=== PATIENT | female | born 1985 | race Caucasian/White ===

== ENCOUNTER 2017-04-07 21:48 | Inpatient (IN) | payer MEDICAID, OTHER ==
[2017-04-07 22:30] LABS: Basophils % (Auto) 0.6 % (0.0-1.8); Eosinophils % (Auto) 4.3 % (0.0-4.3); Hematocrit 42.4 % (30.3-42.9); Hemoglobin 14.2 gm/dl (10.1-14.3); Mean Corpuscular HGB Conc 34 % (30-34); Mean Corpuscular Hemoglobin 31 pg (28-32); Mean Corpuscular Volume 91 fl (79-97); Platelet Count 188 K/mm3 (140-440); Red Blood Count 4.66 M/mm3 (3.65-5.03); Red Cell Distribution Width 14.1 % (13.2-15.2); White Blood Count 6.5 K/mm3 (4.5-11.0)
[2017-04-07 22:48] LABS: Alanine Aminotransferase 296 units/L (7-56); Albumin 4.2 g/dL (3.9-5); Albumin/Globulin Ratio 1.4 %; Alkaline Phosphatase 443 units/L (35-129); Anion Gap 20 mmol/L; Blood Urea Nitrogen 6 mg/dL (7-17); Calcium 9.2 mg/dL (8.4-10.2); Carbon Dioxide 22 mmol/L (22-30); Chloride 100.4 mmol/L (98-107); Glucose 136 mg/dL (65-100); Lipase 35 units/L (13-60); Potassium 3.9 mmol/L (3.6-5.0); Sodium 138 mmol/L (137-145); Total Protein 7.3 g/dL (6.3-8.2)
[2017-04-07 23:13] LABS: Bacteria,Urine 3+ /HPF (Negative); Bilirubin,Urine NEG (Negative); Blood,Urine MOD (Negative); Ketones,Urine NEG (Negative); Leukocyte Esterase,Urine TR (Negative); Nitrite,Urine NEG (Negative); Protein,Urine <15 mg/dL mg/dL (Negative)
[2017-04-08] MEDS ORDERED: NACL 0.9% 1000 ML 1,000 ML ONE (09:39)
[2017-04-08] MEDS ORDERED: NACL 0.9% 1000 ML 1,000 ML IV ONE (09:43)
[2017-04-08] MEDS ORDERED: MORPHINE IV ONE ×2 (09:43→11:49)
[2017-04-08] MEDS ORDERED: ZOFRAN IV ONE (09:43)
--- NOTE | 2017-04-08 10:41 | Ultrasound Report ---
The limited abdominal ultrasound: Imaging of the liver, pancreas, and right kidney are all echogenically normal. The renal length is 10.1 cm. The gallbladder has numerous calculi with distal shadowing. The gallbladder wall is thickened measuring roughly 4.5 mm. No pericholecystic fluid identified. CBD is dilated with a diameter of 11 mm. There is some question of minimal intraductal dilatation. The transverse diameter of the proximal abdominal aorta is 1.3 cm. Impression: Cholelithiasis. No definite signs of cholecystitis however the patient apparently has a positive Grant's sign according to our technologist. Dilatation of the CBD and possible biliary ducts but no intraluminal calculus identified.
--- NOTE | 2017-04-08 11:07 | Admit Criteria Form ---
Admission Criteria Documentation: GALLBLADDER OR BILE DUCT INFLAMMATION OR STONE Clinical Indications for Admission to Inpatient Care ( Place 'X' for any and all applicable criteria): Admission is indicated for patients with ANY ONE of the following(1)(2)(3)(4)(5) : [ ]I. Acute cholecystitis as indicated by ALL of the following: [ ]a) Right upper quadrant pain, mass, or tenderness [ ]b) Systemic signs of inflammation indicated by ANY ONE of the following: [ ]i) Fever [ ]ii) C-reactive protein level greater than 10 mg/L (95 nmol/L) [ ]iii) White blood cell count greater than 10,000/mm3 (10 x109/L) or less than 4000/mm3 (4 x109/L) [X]II. Inpatient admission required rather than observation care (Also use Gallbladder or Bile Duct Inflammation or Stone: Observation Care as appropriate) because of ANY ONE of the following: [ ]a) Common bile duct obstruction diagnosed [ ]b) Vomiting that is severe or persistent [X]c) Severe pain requiring acute inpatient management [ ]d) Signs of intestinal obstruction or peritonitis [A] [ ]e) Severe electrolyte abnormalities requiring inpatient care [ ]f) Absent bowel sounds with complete ileus(8) [ ]g) Hemodynamic instability [ ]h) High fever or infection requiring inpatient admission as indicated by ANY ONE of the following (9): [ ]1) Appropriate outpatient or observation care antimicrobial Treatment. unavailable, not effective, or not feasible [ ]2) Temperature greater than 104.9 degrees F (40.5 degrees C) (oral) [ ]3) Temperature greater than 103.1 degrees F (39.5 degrees C) (oral) or less than 96.8 degrees F (36 degrees C) (rectal) that does not respond to all emergency treatment measures [ ]4) Documented bacteremia [ ]i) IV fluid to replace significant ongoing losses (greater than 3 L/m2 per day) [ ]j) Percutaneous or open drainage (eg, abscess, biliary tract) procedures [ ]k) Immediate inpatient surgery [ ]l) Other condition, treatment or monitoring requiring inpatient admission [ ]III. Acute cholangitis as indicated by ALL of the following(9)(10): [ ]a) Systemic signs of inflammation indicated by ANY ONE of the following: [ ]i) Fever [ ]ii) C-reactive protein level greater than 10 mg/L (95 nmol /L) [ ]iii) White blood cell count greater than 10,000/mm3 (10 x109/L) or less than 4000/mm3 (4 x109/L) []b) Evidence of common bile duct disease indicated by ANY ONE of the following: [ ]i) Total serum bilirubin level greater than or equal to 2 mg/dL (34 micromoles/L) [ ]ii) Liver function test (alkaline phosphatase (ALP), r- glutamyltransferase (GGT), aspartate aminotransferase (AST), or alanine aminotransferase (ALT)) greater than 1.5 times the upper limit of normal[B] []iii) Hepatobiliary imaging showing biliary dilatation or evidence of etiology (eg, stricture, stone, previously placed stent) Extended stay beyond goal length of stay may be needed for (1)(2)): [ ]a) Bacteremia or Hemodynamic instability [ ]b) Cholecystectomy [ ]c) Other surgical procedure(24) [ ]d) Percutaneous or endoscopic ultrasound-guided cholecystostomy The original [facility] content created by [facility] has been revised. The portions of the content which have been revised are identified through the use of italic text or in bold, and [facility] has neither reviewed nor approved the modified material. All other unmodified content is copyright [facility]. Please see references footnoted in the original [facility] edition 2016 Admission Criteria Met: Yes
[2017-04-08] MEDS ORDERED: LEVAQUIN 500MG/100ML 500 MG/100 ML BAG IV ONE (11:49)
--- NOTE | 2017-04-08 11:59 | Emergency Department Report ---
ED Abdominal Pain HPI - General Chief Complaint: Abdominal Pain Stated Complaint: R SIDE ABD/BACK PAIN Time Seen by Provider: 04/08/17 10:18 Source: patient, RN notes reviewed Mode of arrival: Ambulatory Limitations: No Limitations - History of Present Illness Initial Comments: 31-year-old female presents to the emergency department complaining of abdominal pain. Patient reports onset of right upper quadrant abdominal pain 4 days ago. Pain was described as sharp and radiated into her upper back. Patient states she vomited one time then. After vomiting, the pain subsided. Pain began again yesterday and has been progressively getting worse since onset. Pain has been constant and again described as sharp. She describes radiation of this pain into her upper back and somewhat into her right chest. She is currently denying nausea or vomiting. There has been no fever. There are no other complaints. MD Complaint: abdominal pain -: Gradual, days(s) (4) Location: RUQ Radiation: back, chest Migration to: no migration Severity: severe Severity scale (0 -10): 10 Quality: sharp Consistency: constant Improves With: vomiting Worsens With: eating Associated Symptoms: nausea, vomiting - Related Data Home Medications Medication Instructions Recorded Confirmed Last Taken No Known Home Medications [No 04/08/17 04/08/17 Unknown Reported Home Medications] Allergies Allergy/AdvReac Type Severity Reaction Status Date / Time No Known Allergies Allergy Verified 02/14/16 18:21 ED Review of Systems ROS: Stated complaint: R SIDE ABD/BACK PAIN Other details as noted in HPI Comment: All other systems reviewed and negative Gastrointestinal: abdominal pain, nausea, vomiting ED Past Medical Hx - Past Medical History Previous Medical History?: No Hx Hypertension: No Hx Congestive Heart Failure: No Hx Diabetes: No Hx Deep Vein Thrombosis: No Hx Renal Disease: No Hx Sickle Cell Disease: No Hx Seizures: No Hx Asthma: No Hx COPD: No Hx HIV: No - Surgical History Past Surgical History?: No - Family History Family history: no significant - Social History Smoking Status: Never Smoker Substance Use Type: None - Medications Home Medications: Home Medications Medication Instructions Recorded Confirmed Last Taken Type No Known Home Medications [No 04/08/17 04/08/17 Unknown History Reported Home Medications] ED Physical Exam - General Limitations: No Limitations General appearance: alert, in no apparent distress - Head Head exam: Present: atraumatic, normocephalic - Eye Eye exam: Present: normal appearance, PERRL, EOMI - ENT ENT exam: Present: normal exam, normal orophraynx, mucous membranes moist - Neck Neck exam: Present: normal inspection, full ROM. Absent: tenderness - Respiratory Respiratory exam: Present: normal lung sounds bilaterally. Absent: respiratory distress - Cardiovascular Cardiovascular Exam: Present: regular rate, normal rhythm, normal heart sounds - GI/Abdominal GI/Abdominal exam: Present: soft, tenderness (mild right upper quadrant tenderness to palpation), normal bowel sounds. Absent: distended, guarding, rebound - Extremities Exam Extremities exam: Present: normal inspection, full ROM. Absent: tenderness - Back Exam Back exam: Present: normal inspection, full ROM. Absent: tenderness - Neurological Exam Neurological exam: Present: alert, oriented X3. Absent: motor sensory deficit - Skin Skin exam: Present: warm, dry, intact ED Course Vital Signs 04/07/17 04/08/17 04/08/17 22:04 03:40 08:39 Temperature 98.9 F 98.5 F Pulse Rate 99 H 84 83 Respiratory 18 18 14 Rate Blood Pressure 153/103 142/107 O2 Sat by Pulse 100 99 100 Oximetry 04/08/17 04/08/17 04/08/17 08:41 08:51 09:00 Temperature Pulse Rate 78 87 80 Respiratory 17 15 19 Rate Blood Pressure 151/94 151/94 154/95 O2 Sat by Pulse 100 100 100 Oximetry 04/08/17 04/08/17 04/08/17 09:11 09:19 09:21 Temperature Pulse Rate 89 80 Respiratory 17 18 18 Rate Blood Pressure 154/95 154/95 O2 Sat by Pulse 100 99 100 Oximetry 04/08/17 09:58 Temperature Pulse Rate Respiratory 16 Rate Blood Pressure O2 Sat by Pulse Oximetry ED Medical Decision Making - Lab Data Result diagrams: 04/07/17 22:12 04/07/17 22:12 - Radiology Data Radiology results: report reviewed Abdominal ultrasound reveals cholelithiasis without evidence of cholecystitis. The common bile duct is dilated up to 11 mm. There is possible intrahepatic ductal dilatation as well. - Medical Decision Making Lab and imaging results reviewed and discussed with the patient. I have spoken with Dr. Mccoy, surgery. He is requesting IV Levaquin and MRCP be ordered. He will see the patient. Patient is to be admitted by the hospitalist. - Differential Diagnosis cholecystitis, cholelithiasis, hepatitis, pancreatitis Critical care attestation.: If time is entered above; I have spent that time in minutes in the direct care of this critically ill patient, excluding procedure time. ED Disposition Clinical Impression: Cholelithiasis Qualifiers: Cholelithiasis location: gallbladder Cholecystitis presence: without cholecystitis Biliary obstruction: with biliary obstruction Qualified Code(s): K80.21 - Calculus of gallbladder without cholecystitis with obstruction Disposition: OP ADMITTED IP TO THIS HOSP Is pt being admited?: Yes Condition: Stable Instructions: Abdominal Pain (ED) Referrals: PRIMARY CARE, [Primary Care Provider] - 3-5 Days Time of Disposition: 12:25
[2017-04-08] MEDS ORDERED: TYLENOL PO PRN (14:52)
[2017-04-08] MEDS ORDERED: MILK OF MAGNESIA PO PRN (14:52)
[2017-04-08] MEDS ORDERED: DULCOLAX PR PRN (14:52)
[2017-04-08] MEDS ORDERED: ZOFRAN IV PRN (14:52)
--- NOTE | 2017-04-08 15:11 | Progress Note ---
Assessment and Plan Full consult dictated 31 y/o female r/o cholecystitis/choledocolithiasis. r/o choledocolithiasis. RUQ pain. elevated T Tonio. dilated CBD on US awaiting MRCP keep npo pain meds IV Levaquin will f/u on MRCP results will need GI eval for ERCP if MR shows CBD stones Selected Entries 04/08/17 04/08/17 13:51 14:03 Temperature 98.1 F Pulse Rate 92 H Respiratory 15 Rate Blood Pressure 134/90 Laboratory Tests 04/07/17 04/07/17 22:12 22:12 WBC 6.5 Hgb 14.2 Hct 42.4 Sodium 138 Potassium 3.9 Chloride 100.4 BUN 6 L Creatinine 0.4 L Glucose 136 H Total Bilirubin 3.40 H AST 89 H ALT 296 H Alkaline Phosphatase 443 H Objective Vital Signs - 12hr 04/08/17 04/08/17 04/08/17 12:30 12:41 12:51 Temperature Pulse Rate 90 97 H 93 H Respiratory 23 23 16 Rate Blood Pressure 117/77 117/77 121/69 Blood Pressure [Right] O2 Sat by Pulse 100 99 100 Oximetry 04/08/17 04/08/17 04/08/17 13:00 13:11 13:21 Temperature Pulse Rate 91 H 91 H 90 Respiratory 16 18 25 H Rate Blood Pressure 125/87 125/87 128/90 Blood Pressure [Right] O2 Sat by Pulse 100 100 100 Oximetry 04/08/17 04/08/17 04/08/17 13:30 13:41 13:51 Temperature 98.1 F Pulse Rate 87 90 92 H Respiratory 18 16 18 Rate Blood Pressure 137/91 137/91 134/90 Blood Pressure 134/90 [Right] O2 Sat by Pulse 100 99 100 Oximetry 04/08/17 14:03 Temperature Pulse Rate Respiratory 15 Rate Blood Pressure Blood Pressure [Right] O2 Sat by Pulse 100 Oximetry - Labs 04/07/17 22:12 04/07/17 22:12
--- NOTE | 2017-04-08 16:01 | History and Physical Report ---
History of Present Illness Date of examination: 04/08/17 Date of admission: 04/08/2017 Chief complaint: Abdominal Pain History of present illness: Patient is 31 Yrs old female came in to the ED with C/O of abdominal pain. Patient reported she had sharp right upper quadrant pain that radiated to right upper back since Thursday. Patient mentioned that her pain started after eating greasy dinner. Also patient reported that she vomited right after she ate. Patient stated that she felt better after vomiting. Pain started back again on 04/06/2017 and she took Tylenol but did not help with the pain. pain worsen since Thursday and decided to come in to ED. Patient denies nausea and vomiting at present time. Past History Past Surgical History: Social history: , full code. denies: smoking, alcohol abuse Family history: no significant family history Medications and Allergies Allergies Allergy/AdvReac Type Severity Reaction Status Date / Time No Known Allergies Allergy Verified 02/14/16 18:21 Home Medications Medication Instructions Recorded Confirmed Last Taken Type No Known Home Medications [No 04/08/17 04/08/17 Unknown History Reported Home Medications] Active Meds: Active Medications Acetaminophen (Tylenol) 650 mg PO Q4H PRN PRN Reason: Pain MILD(1-3)/Fever >100.5/ECHAVARRIA Bisacodyl (Dulcolax) 10 mg IA QDAY PRN PRN Reason: Constipation unrelieved by [facility] Dextrose/Sodium Chloride (D5ns) 1,000 mls @ 75 mls/hr IV DIRECT [place] Levofloxacin/Dextrose (Levaquin 750mg/150ml) 750 mg in 150 mls @ 100 mls/hr IV Q24HR AREG[place] PRN Reason: Protocol Influenza Virus Vaccine Quadrival (Fluarix Quad [id number](36 Mos+)) 60 mcg IM .ONCE ONE Stop: 04/09/17 12:01 Magnesium Hydroxide (Milk Of Magnesia) 30 ml PO Q4H PRN PRN Reason: Constipation Morphine Sulfate (Morphine) 2 mg IV Q4H PRN PRN Reason: Pain, Moderate (4-6) Ondansetron HCl (Zofran) 4 mg IV Q8H PRN PRN Reason: N/V unrelieved by Reglan Review of Systems Constitutional: no weight loss, no weight gain, no fever, no chills, no sweats, no night sweats, no malaise Ears, nose, mouth and throat: deferred Breasts: deferred Cardiovascular: no chest pain, no palpitations, no syncope, no shortness of breath Respiratory: no cough, no dyspnea on exertion Gastrointestinal: abdominal pain, nausea, vomiting, no diarrhea, no constipation , no hematemesis, no melena Genitourinary Female: no dyspareunia, no pelvic pain, no flank pain Rectal: no incontinence, no bleeding Musculoskeletal: no neck stiffness, no leg numbness/tingling, no redness of joints Integumentary: deferred Neurological: no head injury, no syncope Psychiatric: no anxiety, no confusion Endocrine: no weight change Allergic/Immunologic: no urticaria Exam - Constitutional Vitals: Temp Pulse Resp BP Pulse Ox 98.1 F 92 H 15 134/90 100 04/08/17 13:51 04/08/17 13:51 04/08/17 14:03 04/08/17 13:51 04/08/17 14:03 General appearance: Present: no acute distress, well-nourished - EENT Eyes: Present: PERRL ENT: hearing intact, clear oral mucosa - Neck Neck: Present: supple, normal ROM - Respiratory Respiratory effort: normal Respiratory: bilateral: CTA - Cardiovascular Heart Sounds: Present: S1 & S2. Absent: rub, click - Extremities Extremities: pulses symmetrical, No edema Peripheral Pulses: within normal limits - Abdominal General gastrointestinal: Present: soft, tender (RUQ tenderness present, no guarding, no rigidity), non-distended, normal bowel sounds Localized gastrointestinal: tender: RUQ Female genitourinary: Present: normal - Integumentary Integumentary: Present: clear, warm, dry - Musculoskeletal Musculoskeletal: gait normal, strength equal bilaterally - Psychiatric Psychiatric: appropriate mood/affect, intact judgment & insight - Neurologic Neurologic: CNII-XII intact, moves all extremities Results - Labs CBC & Chem 7: 04/07/17 22:12 04/07/17 22:12 Labs: Laboratory Last Values WBC 6.5 K/mm3 (4.5-11.0) 04/07/17 22:12 RBC 4.66 M/mm3 (3.65-5.03) 04/07/17 22:12 Hgb 14.2 gm/dl (10.1-14.3) 04/07/17 22:12 Hct 42.4 % (30.3-42.9) 04/07/17 22:12 MCV 91 fl (79-97) 04/07/17 22:12 MCH 31 pg (28-32) 04/07/17 22:12 MCHC 34 % (30-34) 04/07/17 22:12 RDW 14.1 % (13.2-15.2) 04/07/17 22:12 Plt Count 188 K/mm3 (140-440) 04/07/17 22:12 Lymph % (Auto) 22.7 % (13.4-35.0) 04/07/17 22:12 Hinds % (Auto) 6.1 % (0.0-7.3) 04/07/17 22:12 Eos % (Auto) 4.3 % (0.0-4.3) 04/07/17 22:12 Baso % (Auto) 0.6 % (0.0-1.8) 04/07/17 22:12 Lymph # 1.5 K/mm3 (1.2-5.4) 04/07/17 22:12 Hinds # 0.4 K/mm3 (0.0-0.8) 04/07/17 22:12 Eos # 0.3 K/mm3 (0.0-0.4) 04/07/17 22:12 Baso # 0.0 K/mm3 (0.0-0.1) 04/07/17 22:12 Seg Neutrophils % 66.3 % (40.0-70.0) 04/07/17 22:12 Seg Neutrophils # 4.3 K/mm3 (1.8-7.7) 04/07/17 22:12 Sodium 138 mmol/L (137-145) 04/07/17 22:12 Potassium 3.9 mmol/L (3.6-5.0) 04/07/17 22:12 Chloride 100.4 mmol/L (98-107) 04/07/17 22:12 Carbon Dioxide 22 mmol/L (22-30) 04/07/17 22:12 Anion Gap 20 mmol/L 04/07/17 22:12 BUN 6 mg/dL (7-17) L 04/07/17 22:12 Creatinine 0.4 mg/dL (0.7-1.2) L 04/07/17 22:12 Estimated GFR > 60 ml/min 04/07/17 22:12 BUN/Creatinine Ratio 15.00 % 04/07/17 22:12 Glucose 136 mg/dL (65-100) H 04/07/17 22:12 Calcium 9.2 mg/dL (8.4-10.2) 04/07/17 22:12 Total Bilirubin 3.40 mg/dL (0.1-1.2) H 04/07/17 22:12 AST 89 units/L (5-40) H 04/07/17 22:12 ALT 296 units/L (7-56) H 04/07/17 22:12 Alkaline Phosphatase 443 units/L (35-129) H 04/07/17 22:12 Total Protein 7.3 g/dL (6.3-8.2) 04/07/17 22:12 Albumin 4.2 g/dL (3.9-5) 04/07/17 22:12 Albumin/Globulin Ratio 1.4 % 04/07/17 22:12 Lipase 35 units/L (13-60) 04/07/17 22:12 Urine Color Cathie (Yellow) 04/07/17 Unknown Urine Turbidity Clear (Clear) 04/07/17 Unknown Urine pH 7.0 (5.0-7.0) 04/07/17 Unknown Ur Specific [place] 1.010 (1.003-1.030) 04/07/17 Unknown Urine Protein <15 mg/dl mg/dL (Negative) 04/07/17 Unknown Urine Glucose (UA) Neg mg/dL (Negative) 04/07/17 Unknown Urine Ketones Neg mg/dL (Negative) 04/07/17 Unknown Urine Blood Mod (Negative) 04/07/17 Unknown Urine Nitrite Neg (Negative) 04/07/17 Unknown Urine Bilirubin Neg (Negative) 04/07/17 Unknown Urine Urobilinogen 4.0 mg/dL (<2.0) 04/07/17 Unknown Ur Leukocyte Esterase Tr (Negative) 04/07/17 Unknown Urine WBC (Auto) 2.0 /HPF (0.0-6.0) 04/07/17 Unknown Urine RBC (Auto) 3.0 /HPF (0.0-6.0) 04/07/17 Unknown U Epithel Cells (Auto) 2.0 /HPF (0-13.0) 04/07/17 Unknown Urine Bacteria (Auto) 3+ /HPF (Negative) 04/07/17 Unknown Urine HCG, Qual Negative (Negative) 04/07/17 Unknown Short CBC 04/07/17 Range/Units 22:12 WBC 6.5 (4.5-11.0) K/mm3 Hgb 14.2 (10.1-14.3) gm/dl Hct 42.4 (30.3-42.9) % Plt Count 188 (140-440) K/mm3 BMP 04/07/17 22:12 Sodium 138 Potassium 3.9 Chloride 100.4 Carbon Dioxide 22 BUN 6 L Creatinine 0.4 L Glucose 136 H Calcium 9.2 Liver Function 04/07/17 Range/Units 22:12 Total Bilirubin 3.40 H (0.1-1.2) mg/dL AST 89 H (5-40) units/L ALT 296 H (7-56) units/L Alkaline Phosphatase 443 H (35-129) units/L Albumin 4.2 (3.9-5) g/dL Urine 04/07/17 Range/Units Unknown Urine Color Cathie (Yellow) Urine pH 7.0 (5.0-7.0) Ur Specific [place] 1.010 (1.003-1.030) Urine Protein <15 mg/dl (Negative) mg/dL Urine Glucose (UA) Neg (Negative) mg/dL - Imaging and Cardiology US - abdomen: report reviewed (Cholelithiasis ) MRI - abdomen: report reviewed (MRCP Cholelithiasis and Choledocholithasis with at least 6 stones in the CBD, 2 Obstructing Calculus in the distal CBD, 3 no sign of pancreatitis ) Assessment and Plan Assessment and plan: Full Code Advance Directives: Yes VTE prophylaxis?: Chemical Plan of care discussed with patient/family: Yes - Patient Problems (1) Cholelithiasis Current Visit: Yes Status: Acute Qualifiers: Cholelithiasis location: gallbladder Cholecystitis presence: without cholecystitis Cholangitis presence: C Cholecystitis acuity: C Cholangitis acuity: C Biliary obstruction: with biliary obstruction Qualified Code(s): K80.21 - Calculus of gallbladder without cholecystitis with obstruction Plan to address problem: MRCP positive for obstructing Calculus in the distal CBD at least 6 stones in the CBD. Surgery Dr. Mccoy also GI consulted for possible ERCP. Pain control in mean time IV fluid and keep patient NPO (2) HTN (hypertension) Current Visit: Yes Status: Acute Qualifiers: Hypertension type: H Plan to address problem: Secondary to pain will add antihypertensive if its needed. (3) DVT prophylaxis Current Visit: Yes Status: Acute Plan to address problem: Lovenox 40mg SQ QD
--- NOTE | 2017-04-08 16:13 | Magnetic Resonance Report ---
MRI ABDOMEN WITH MRCP: 04/08/17 11:49:00 CLINICAL: Cholelithiasis and CBD dilatation. COMPARISON:Same day ultrasound of the right upper quadrant. TECHNIQUE: Axial T1 in phase and opposed phase, coronal and axial T2 and axial T2 fat sat sequences plus thin and thick slab MRCP sequences on a 1.5 Sheyla magnet. FINDINGS: Normal liver size, contour and signal. No liver mass. Numerous calculi are identified in the gallbladder. Normal gallbladder wall thickness and no pericholecystic fluid. Marked dilatation of intrahepatic and extrahepatic mild ducts and multiple common duct stones. The common hepatic duct measures 13 mm diameter and there are at least six common bile duct stones. The CBD is dilated to the ampulla and there is an obstructing stone at the end of the duct. The pancreas and pancreatic duct are normal. Normal stomach, duodenum and spleen. The adrenal glands and kidneys are normal. Normal aorta and inferior vena cava. No ascites. IMPRESSION: 1. Cholelithiasis and choledocholithiasis with at least 6 stones in the CBD. 2. Obstructing calculus in the distal CBD. 3. No signs of pancreatitis.
[2017-04-08] MEDS: MORPHINE IV PRN ×2 (17:09→20:56)
[2017-04-08] MEDS: LEVAQUIN 750MG/150ML 750 MG/150 ML BAG IV SCH (17:10)
[2017-04-08] MEDS: D5NS 1,000 ML IV SCH (17:11)
[2017-04-09] MEDS: MORPHINE IV PRN ×2 (01:53→22:16)
[2017-04-09 05:45] LABS: Basophils % (Auto) 0.2 % (0.0-1.8); Eosinophils % (Auto) 0.7 % (0.0-4.3); Hematocrit 43.1 % (30.3-42.9); Hemoglobin 14.5 gm/dl (10.1-14.3); Mean Corpuscular HGB Conc 34 % (30-34); Mean Corpuscular Hemoglobin 31 pg (28-32); Mean Corpuscular Volume 91 fl (79-97); Platelet Count 176 K/mm3 (140-440); Red Blood Count 4.74 M/mm3 (3.65-5.03); Red Cell Distribution Width 13.8 % (13.2-15.2); White Blood Count 9.4 K/mm3 (4.5-11.0)
[2017-04-09 06:01] LABS: Anion Gap 19 mmol/L; Blood Urea Nitrogen 3 mg/dL (7-17); Calcium 8.7 mg/dL (8.4-10.2); Carbon Dioxide 23 mmol/L (22-30); Chloride 99.4 mmol/L (98-107); Glucose 125 mg/dL (65-100); Potassium 3.5 mmol/L (3.6-5.0); Sodium 138 mmol/L (137-145)
--- NOTE | 2017-04-09 06:06 | Consultation ---
REASON FOR CONSULTATION: 1. Rule out biliary colic/cholecystitis. 2. Rule out choledocholithiasis. HISTORY OF PRESENT ILLNESS: The patient is a pleasant 31-year-old female who presented to Emergency Room with recent onset of right upper quadrant abdominal pain accompanied by nausea and vomiting. PAST MEDICAL HISTORY: Negative. PAST SURGICAL HISTORY: Status post . ALLERGIES: No known allergies. MEDICATIONS: No medications. FAMILY HISTORY: Negative. SOCIAL HISTORY: Occasional ethanol intake. Denies any smoking. REVIEW OF SYSTEMS: Noncontributory. PHYSICAL EXAMINATION: GENERAL: At this time reveals the patient to be awake, alert, cooperative, in mild discomfort, but no acute distress. VITAL SIGNS: Showed to be afebrile with a temperature of 98.1, blood pressure of 134/90, pulse of 92, respirations of 18. HEENT: Pupils are equal and reactive to light and accommodation. Sclerae is nonicteric at this time. ABDOMEN: Examination of the abdomen reveals it to be soft. There is however, localized epigastric and right upper quadrant tenderness. No guarding or rebound is noted. Bowel sounds are hypoactive. LABORATORY DATA: Lab work at present includes CBC which shows a white count of 6.5, H and H is and 42.4. Electrolytes are essentially within normal limits. LFTs are elevated including a total bilirubin of 3.4, AST is 89, ALT is 296, alkaline phosphatase is 443, all of them elevated. Lipase is 35. Amylase is not noted on chart. A gallbladder ultrasound has been performed, which shows cholelithiasis, but no definite signs of cholecystitis. However, the common bile duct is described as dilated approximately 1.1 cm, but no evidence of common duct stones are noted on ultrasound. IMPRESSION: 1. At this time is that of a 31-year-old healthy female, rule out cholecystitis. 2. Rule out choledocholithiasis with evidence of dilated common duct and elevated total bilirubin. RECOMMENDATIONS: Would keep the patient n.p.o. at this time. Start IV Levaquin as well as pain medication as needed. We will order MRCP. The patient will need GI evaluation and an ERCP, if MRCP reveals any evidence of common bile duct stones. If not, we will monitor clinically and proceed with laparoscopic cholecystectomy in the next few days. We will follow closely with you. Thank you very much for consultation. JOB# [id number] ASHKAN/NTS
[2017-04-09] MEDS: D5NS 1,000 ML IV SCH (07:06)
--- NOTE | 2017-04-09 09:19 | Progress Note ---
Assessment and Plan Assessment and plan: Cholelithiasis. MRCP positive for obstructing Calculus in the distal CBD at least 6 stones in the CBD. Surgery Dr. Mccoy also GI consulted for possible ERCP today. Continue Pain control Continue IV fluid and keep patient NPO Hypertension. Etiology likely secondary to pain. Consider adding antihypertensive medications as needed. DVT prophylaxis. Continue Lovenox daily. History Interval history: Patient still complains of right upper and lower quadrant abdominal pain. Hospitalist Physical - Constitutional Vitals: Temp Pulse Resp BP Pulse Ox 98.8 F 90 18 127/83 100 04/09/17 00:15 04/09/17 00:15 04/09/17 00:15 04/09/17 00:15 04/08/17 14:10 General appearance: Present: no acute distress, well-nourished - EENT Eyes: Present: PERRL, EOM intact ENT: hearing intact, clear oral mucosa, dentition normal - Neck Neck: Present: supple, normal ROM - Respiratory Respiratory effort: normal Respiratory: bilateral: CTA - Cardiovascular Rhythm: regular Heart Sounds: Present: S1 & S2. Absent: gallop, rub - Extremities Extremities: no ischemia, No edema, Full ROM - Abdominal General gastrointestinal: soft, tender, non-distended, normal bowel sounds Localized gastrointestinal: tender: RUQ, RLQ - Integumentary Integumentary: Present: clear, warm, dry - Neurologic Neurologic: CNII-XII intact, moves all extremities Results - Labs CBC & Chem 7: 04/09/17 05:13 04/09/17 05:13 Labs: Laboratory Last Values WBC 9.4 K/mm3 (4.5-11.0) 04/09/17 05:13 RBC 4.74 M/mm3 (3.65-5.03) 04/09/17 05:13 Hgb 14.5 gm/dl (10.1-14.3) H 04/09/17 05:13 Hct 43.1 % (30.3-42.9) H 04/09/17 05:13 MCV 91 fl (79-97) 04/09/17 05:13 MCH 31 pg (28-32) 04/09/17 05:13 MCHC 34 % (30-34) 04/09/17 05:13 RDW 13.8 % (13.2-15.2) 04/09/17 05:13 Plt Count 176 K/mm3 (140-440) 04/09/17 05:13 Lymph % (Auto) 16.1 % (13.4-35.0) 04/09/17 05:13 [place] % (Auto) 7.1 % (0.0-7.3) 04/09/17 05:13 Eos % (Auto) 0.7 % (0.0-4.3) 04/09/17 05:13 Baso % (Auto) 0.2 % (0.0-1.8) 04/09/17 05:13 Lymph # 1.5 K/mm3 (1.2-5.4) 04/09/17 05:13 [place] # 0.7 K/mm3 (0.0-0.8) 04/09/17 05:13 Eos # 0.1 K/mm3 (0.0-0.4) 04/09/17 05:13 Baso # 0.0 K/mm3 (0.0-0.1) 04/09/17 05:13 Seg Neutrophils % 75.9 % (40.0-70.0) H 04/09/17 05:13 Seg Neutrophils # 7.1 K/mm3 (1.8-7.7) 04/09/17 05:13 Sodium 138 mmol/L (137-145) 04/09/17 05:13 Potassium 3.5 mmol/L (3.6-5.0) L 04/09/17 05:13 Chloride 99.4 mmol/L (98-107) 04/09/17 05:13 Carbon Dioxide 23 mmol/L (22-30) 04/09/17 05:13 Anion Gap 19 mmol/L 04/09/17 05:13 BUN 3 mg/dL (7-17) L 04/09/17 05:13 Creatinine < 0.2 mg/dL (0.7-1.2) L D 04/09/17 05:13 Estimated GFR > 60 ml/min 04/09/17 05:13 BUN/Creatinine Ratio 15.00 % 04/09/17 05:13 Glucose 125 mg/dL (65-100) H 04/09/17 05:13 Calcium 8.7 mg/dL (8.4-10.2) 04/09/17 05:13 Total Bilirubin 3.40 mg/dL (0.1-1.2) H 04/07/17 22:12 AST 89 units/L (5-40) H 04/07/17 22:12 ALT 296 units/L (7-56) H 04/07/17 22:12 Alkaline Phosphatase 443 units/L (35-129) H 04/07/17 22:12 Total Protein 7.3 g/dL (6.3-8.2) 04/07/17 22:12 Albumin 4.2 g/dL (3.9-5) 04/07/17 22:12 Albumin/Globulin Ratio 1.4 % 04/07/17 22:12 Lipase 35 units/L (13-60) 04/07/17 22:12 Urine Color Cathie (Yellow) 04/07/17 Unknown Urine Turbidity Clear (Clear) 04/07/17 Unknown Urine pH 7.0 (5.0-7.0) 04/07/17 Unknown Ur Specific [place] 1.010 (1.003-1.030) 04/07/17 Unknown Urine Protein <15 mg/dl mg/dL (Negative) 04/07/17 Unknown Urine Glucose (UA) Neg mg/dL (Negative) 04/07/17 Unknown Urine Ketones Neg mg/dL (Negative) 04/07/17 Unknown Urine Blood Mod (Negative) 04/07/17 Unknown Urine Nitrite Neg (Negative) 04/07/17 Unknown Urine Bilirubin Neg (Negative) 04/07/17 Unknown Urine Urobilinogen 4.0 mg/dL (<2.0) 04/07/17 Unknown Ur Leukocyte Esterase Tr (Negative) 04/07/17 Unknown Urine WBC (Auto) 2.0 /HPF (0.0-6.0) 04/07/17 Unknown Urine RBC (Auto) 3.0 /HPF (0.0-6.0) 04/07/17 Unknown U Epithel Cells (Auto) 2.0 /HPF (0-13.0) 04/07/17 Unknown Urine Bacteria (Auto) 3+ /HPF (Negative) 04/07/17 Unknown Urine HCG, Qual Negative (Negative) 04/07/17 Unknown
--- NOTE | 2017-04-09 11:13 | Progress Note ---
Assessment and Plan Pt feeling well. Abd - decreased tenderness MRCP - + CBD stones. imp - cholelithiasis, choledocolithiasis with obst GI eval for ERCP Laboratory Tests 04/09/17 04/09/17 05:13 05:13 WBC 9.4 Hgb 14.5 H Hct 43.1 H Sodium 138 Potassium 3.5 L Chloride 99.4 BUN 3 L Creatinine < 0.2 L D Glucose 125 H Objective Vital Signs - 12hr 04/09/17 00:15 Temperature 98.8 F Pulse Rate [ 90 Left] Respiratory 18 Rate Blood Pressure 127/83 [Left Arm] - Labs 04/09/17 05:13 04/09/17 05:13 Diabetes panel 04/09/17 Range/Units 05:13 Sodium 138 (137-145) mmol/L Potassium 3.5 L (3.6-5.0) mmol/L Chloride 99.4 (98-107) mmol/L Carbon Dioxide 23 (22-30) mmol/L BUN 3 L (7-17) mg/dL Creatinine < 0.2 L D (0.7-1.2) mg/dL Glucose 125 H (65-100) mg/dL Calcium 8.7 (8.4-10.2) mg/dL Calcium panel 04/09/17 Range/Units 05:13 Calcium 8.7 (8.4-10.2) mg/dL Pituitary panel 04/09/17 Range/Units 05:13 Sodium 138 (137-145) mmol/L Potassium 3.5 L (3.6-5.0) mmol/L Chloride 99.4 (98-107) mmol/L Carbon Dioxide 23 (22-30) mmol/L BUN 3 L (7-17) mg/dL Creatinine < 0.2 L D (0.7-1.2) mg/dL Glucose 125 H (65-100) mg/dL Calcium 8.7 (8.4-10.2) mg/dL Adrenal panel 04/09/17 Range/Units 05:13 Sodium 138 (137-145) mmol/L Potassium 3.5 L (3.6-5.0) mmol/L Chloride 99.4 (98-107) mmol/L Carbon Dioxide 23 (22-30) mmol/L BUN 3 L (7-17) mg/dL Creatinine < 0.2 L D (0.7-1.2) mg/dL Glucose 125 H (65-100) mg/dL Calcium 8.7 (8.4-10.2) mg/dL
[2017-04-09] MEDS: LEVAQUIN 750MG/150ML 750 MG/150 ML BAG IV SCH (11:19)
[2017-04-09] MEDS ORDERED: FLUARIX QUAD 2016-2017(36 MOS+) IM ONE (12:00)
[2017-04-09 12:28] LABS: INR 0.96 (0.87-1.13); Partial Thromboplastin Time 28.1 Sec. (24.2-36.6)
[2017-04-09] MEDS ORDERED: BREVIBLOC IV ONE (16:00)
[2017-04-09] MEDS ORDERED: ZOFRAN ONE (16:00)
[2017-04-09] MEDS ORDERED: XYLOCAINE MPF 2% ONE (16:00)
[2017-04-09] MEDS ORDERED: NACL 0.9% 100 ML ONE (16:16)
[2017-04-09] MEDS ORDERED: WATER FOR IRRIG STERILE IR ONE (16:16)
[2017-04-09] MEDS ORDERED: NACL 0.9% 1000 ML 1,000 ML ONE (17:16)
--- NOTE | 2017-04-09 17:21 | Anesthesia Day of Surgery ---
Anesthesia Day of Surgery - Day of Surgery Patient Examined: Yes Patient H&P Reviewed: Yes Patient is NPO: Yes
--- NOTE | 2017-04-09 17:23 | Anesthesia Consultation ---
Anesthesia Consult and Med Hx - Airway Anesthetic Teeth Evaluation: Good, Caps (lower) ROM Head & Neck: Adequate Mental/Hyoid Distance: Adequate Mallampati Class: Class I Intubation Access Assessment: Probably Good - Pulmonary Exam CTA: Yes - Cardiac Exam Cardiac Exam: RRR - Pre-Operative Health Status ASA Pre-Surgery Classification: ASA1 Proposed Anesthetic Plan: General, MAC - Pulmonary Hx Asthma: No Hx Respiratory Symptoms: Yes (recent cold with mild cough, clear BS) COPD: No Hx Pneumonia: No - Cardiovascular System Hx Hypertension: No - Central Nervous System Hx Seizures: No Hx Psychiatric Problems: No - Endocrine Hx Renal Disease: No Hx End Stage Renal Disease: No Hx Hypothyroidism: No Hx Hyperthyroidism: No - Hematic Hx Anemia: No Hx Sickle Cell Disease: No - Other Systems Hx Alcohol Use: No - Additional Comments Anesthesia Medical History Comments: NPO after MN. No prior general anesthetics. No family hx of anesthesia problems.
--- NOTE | 2017-04-09 17:28 | Gastroenterology Consultation ---
History of Present Illness - Reason for Consult Consult date: 04/09/17 Choledocholithiasis Requesting physician: ETHEL RODRÍGUEZ - History of Present Illness The patient is a 31 yo female admitted with RUQ, N, and vomiting. She was noted to have elevated LFTs on admission, and an US was done: she had gallstones but also a dilated CBD. She then had an MRCP, and multiple large stones were seen. She has had no F/C since admit, and actually has minimal pain at present. She denies CP or SOB, and has no hx of cardiopulmonary disease. Past History Past Medical History: other (Gallstones) Past Surgical History: Social history: , full code. denies: smoking, alcohol abuse Family history: no significant family history Medications and Allergies Allergies Allergy/AdvReac Type Severity Reaction Status Date / Time No Known Allergies Allergy Verified 02/14/16 18:21 Home Medications Medication Instructions Recorded Confirmed Last Taken Type No Known Home Medications [No 04/08/17 04/08/17 Unknown History Reported Home Medications] Active Meds: Active Medications Acetaminophen (Tylenol) 650 mg PO Q4H PRN PRN Reason: Pain MILD(1-3)/Fever >100.5/ECHAVARRIA Bisacodyl (Dulcolax) 10 mg ID QDAY PRN PRN Reason: Constipation unrelieved by MOM Dextrose/Sodium Chloride (D5ns) 1,000 mls @ 75 mls/hr IV DIRECT [place] Last Admin: 04/09/17 07:06 Dose: 75 mls/hr Levofloxacin/Dextrose (Levaquin 750mg/150ml) 750 mg in 150 mls @ 100 mls/hr IV Q24HR [place] PRN Reason: Protocol Last Admin: 04/09/17 11:19 Dose: 100 mls/hr Magnesium Hydroxide (Milk Of Magnesia) 30 ml PO Q4H PRN PRN Reason: Constipation Morphine Sulfate (Morphine) 2 mg IV Q4H PRN PRN Reason: Pain, Moderate (4-6) Last Admin: 04/09/17 01:53 Dose: 2 mg Ondansetron HCl (Zofran) 4 mg IV Q8H PRN PRN Reason: N/V unrelieved by Reglan Review of Systems - Review of Systems All systems: negative (as noted in the HPI.) Exam - Constitutional Vital Signs: Temp Pulse Resp BP Pulse Ox 98.3 F 97 H 20 127/85 100 04/09/17 14:20 04/09/17 14:20 04/09/17 14:20 04/09/17 14:20 04/08/17 14:10 General appearance: no acute distress - EENT Eyes: PERRL, EOM intact, scleral icterus ENT: hearing intact, clear oral mucosa, no thrush - Neck Neck: supple, normal ROM - Respiratory Respiratory effort: normal Respiratory: bilateral: CTA - Cardiovascular Rhythm: regular Heart Sounds: Present: S1 & S2 Extremities: no ischemia, No edema - Gastrointestinal General gastrointestinal: Present: soft, tender (RUQ, but mild), non-distended - Integumentary Integumentary: Present: clear, warm, dry, rash ((Birthmark on L face)) - Neurologic Neurological: alert and oriented x3 - Labs CBC & Chem 7: 04/09/17 05:13 04/09/17 05:13 Lab Results: Laboratory Results - last 24 hr 04/09/17 04/09/17 04/09/17 05:13 05:13 12:06 WBC 9.4 RBC 4.74 Hgb 14.5 H Hct 43.1 H MCV 91 MCH 31 MCHC 34 RDW 13.8 Plt Count 176 Lymph % (Auto) 16.1 [place] % (Auto) 7.1 Eos % (Auto) 0.7 Baso % (Auto) 0.2 Lymph # 1.5 [place] # 0.7 Eos # 0.1 Baso # 0.0 Seg Neutrophils % 75.9 H Seg Neutrophils # 7.1 PT 12.7 INR 0.96 APTT 28.1 Sodium 138 Potassium 3.5 L Chloride 99.4 Carbon Dioxide 23 Anion Gap 19 BUN 3 L Creatinine < 0.2 L D Estimated GFR > 60 BUN/Creatinine Ratio 15.00 Glucose 125 H Calcium 8.7 Assessment and Plan - Patient Problems (1) Chronic cholecystitis due to cholelithiasis with choledocholithiasis Current Visit: Yes Status: Acute Plan to address problem: - Will plan ERCP today to remove stones. - Continue IV hydration and antibiotics.
[2017-04-09] MEDS ORDERED: VERSED IV ONE (17:29)
[2017-04-09] MEDS ORDERED: DIPRIVAN 10 MG/ML IV ONE ×4 (17:29→17:30)
[2017-04-09] MEDS ORDERED: KETALAR ONE (17:32)
[2017-04-09] MEDS ORDERED: NACL P/F VIAL (10 ML) 10 ML ONE (17:33)
--- NOTE | 2017-04-09 18:28 | Post Operative Note ---
Pre-op diagnosis: Choledocholithiasis Post-op diagnosis: same Findings: 1. Bulging ampulla 2. PD not injected or cannulated 3. No filling of GB 4. CBD dilated to 10mm - Multiple filling defects - Several large stones removed with 9mm balloon Procedure: ERCP with sphincterotomy and balloon sweeping of the CBD Anesthesia: MAC Surgeon: MIREYA MONROY Estimated blood loss: minimal Pathology: none Specimen disposition: other (N/A) Condition: stable Disposition: floor (Recs: 1. Check AM LFTs; if normal, may d/c abx in 48 hours. 2. Clear liquids tonight; NPO after MN. 3. OK to proceed to CCY tomorrow if doing well.)
--- NOTE | 2017-04-09 20:28 | Operative Report ---
PROCEDURE PERFORMED: Endoscopic retrograde cholangiopancreatography with biliary sphincterotomy and balloon sweeping of the common bile duct. PREOPERATIVE DIAGNOSIS: Choledocholithiasis. POSTOPERATIVE DIAGNOSIS: Choledocholithiasis. ENDOSCOPIST: Luis Barahona MD INSTRUMENT: [employer] [place] video endoscope. MEDICATIONS: MAC anesthesia by [facility]. COMPLICATIONS: No apparent complications. ESTIMATED BLOOD LOSS: Minimal. SPECIMENS: None. IMPLANTS: None. CONDITION AT COMPLETION: Stable. ASSISTANTS: None. TECHNIQUE: The patient was informed of the risks and benefits of the procedure. She signed the informed consent to proceed. She was placed in the prone position. The above sedative medications were given. Her vital signs remained stable throughout the procedure. The instrument was advanced from the mouth to the second portion of the duodenum under direct visualization. At that point, the bowel was insufflated. The ampulla was noted to be quite bulging and edematous, probably from a passed gallstone. The pancreatic duct was not cannulated during the procedure. The biliary ductal system was cannulated using a Hydratome and a 0.035 guidewire. The cholangiogram showed a dilated bile duct with numerous filling defects. A large sphincterotomy was performed and a 9 mm balloon was swept through 4 times with removal of several large gallstones. The procedure was then terminated. FINDINGS: 1. Bulging ampulla. 2. Pancreatic duct not injected or cannulated during this procedure. 3. No filling noted of the gallbladder. 4. Common bile duct was cannulated using the Hydratome and a 0.035 guidewire and was dilated to 10 mm. A. Right multiple filling defects were seen. B. A large sphincterotomy was performed. C. 9 mm balloon was swept through 4 times with removal of several, at least 4, mixed pigment stones and clearance of the duct afterwards. RECOMMENDATIONS: 1. Check morning liver enzymes and if they have normalized, may discontinue the antibiotics in 48 hours. 2. Clear liquid diet tonight with nothing after midnight. 3. Okay to proceed to cholecystectomy tomorrow if doing well. 4. Avoid nonsteroidal anti-inflammatory drugs for 7 days given a sphincterotomy. JOB# [id number] E/NTS
[2017-04-09] MEDS: PROTONIX PO SCH (23:09)
[2017-04-10 08:29] LABS: Alanine Aminotransferase 165 units/L (7-56); Albumin 3.6 g/dL (3.9-5); Albumin/Globulin Ratio 1.6 %; Alkaline Phosphatase 367 units/L (35-129); Anion Gap 18 mmol/L; Blood Urea Nitrogen 6 mg/dL (7-17); Calcium 8.7 mg/dL (8.4-10.2); Carbon Dioxide 24 mmol/L (22-30); Glucose 98 mg/dL (65-100); Potassium 3.6 mmol/L (3.6-5.0); Sodium 142 mmol/L (137-145); Total Protein 5.9 g/dL (6.3-8.2)
[2017-04-10] MEDS: LEVAQUIN 750MG/150ML 750 MG/150 ML BAG IV SCH (10:32)
[2017-04-10] MEDS: PROTONIX PO SCH (10:33)
--- NOTE | 2017-04-10 10:34 | Progress Note ---
Assessment and Plan Assessment and plan: Cholelithiasis. Patient underwent ERCP with sphincterotomy and balloon sweeping of the CBD. Continue to follow LFTs and discontinue antibiotics in the next 24 hours. Patient for cholecystectomy per surgery. Avoid NSAIDs for 7 days given size of sphincterotomy. Hypertension. Etiology likely secondary to pain. Consider adding antihypertensive medications as needed. DVT prophylaxis. Continue Lovenox daily. History Interval history: Patient still complains of right upper and lower quadrant abdominal pain. Hospitalist Physical - Constitutional Vitals: Temp Pulse Resp BP Pulse Ox 97.9 F 78 18 114/78 99 04/10/17 08:00 04/10/17 08:00 04/10/17 08:00 04/10/17 08:00 04/10/17 08:00 General appearance: Present: no acute distress, well-nourished - EENT Eyes: Present: PERRL, EOM intact ENT: hearing intact, clear oral mucosa, dentition normal - Neck Neck: Present: supple, normal ROM - Respiratory Respiratory effort: normal Respiratory: bilateral: CTA - Cardiovascular Rhythm: regular Heart Sounds: Present: S1 & S2. Absent: gallop, rub - Extremities Extremities: no ischemia, No edema, Full ROM - Abdominal General gastrointestinal: soft, non-tender, non-distended, normal bowel sounds - Integumentary Integumentary: Present: clear, warm, dry - Neurologic Neurologic: CNII-XII intact, moves all extremities Results - Labs CBC & Chem 7: 04/09/17 05:13 04/10/17 07:13 Labs: Laboratory Last Values WBC 9.4 K/mm3 (4.5-11.0) 04/09/17 05:13 RBC 4.74 M/mm3 (3.65-5.03) 04/09/17 05:13 Hgb 14.5 gm/dl (10.1-14.3) H 04/09/17 05:13 Hct 43.1 % (30.3-42.9) H 04/09/17 05:13 MCV 91 fl (79-97) 04/09/17 05:13 MCH 31 pg (28-32) 04/09/17 05:13 MCHC 34 % (30-34) 04/09/17 05:13 RDW 13.8 % (13.2-15.2) 04/09/17 05:13 Plt Count 176 K/mm3 (140-440) 04/09/17 05:13 Lymph % (Auto) 16.1 % (13.4-35.0) 04/09/17 05:13 [place] % (Auto) 7.1 % (0.0-7.3) 04/09/17 05:13 Eos % (Auto) 0.7 % (0.0-4.3) 04/09/17 05:13 Baso % (Auto) 0.2 % (0.0-1.8) 04/09/17 05:13 Lymph # 1.5 K/mm3 (1.2-5.4) 04/09/17 05:13 [place] # 0.7 K/mm3 (0.0-0.8) 04/09/17 05:13 Eos # 0.1 K/mm3 (0.0-0.4) 04/09/17 05:13 Baso # 0.0 K/mm3 (0.0-0.1) 04/09/17 05:13 Seg Neutrophils % 75.9 % (40.0-70.0) H 04/09/17 05:13 Seg Neutrophils # 7.1 K/mm3 (1.8-7.7) 04/09/17 05:13 PT 12.7 Sec. (12.2-14.9) 04/09/17 12:06 INR 0.96 (0.87-1.13) 04/09/17 12:06 APTT 28.1 Sec. (24.2-36.6) 04/09/17 12:06 Sodium 142 mmol/L (137-145) 04/10/17 07:13 Potassium 3.6 mmol/L (3.6-5.0) 04/10/17 07:13 Chloride 104.0 mmol/L (98-107) 04/10/17 07:13 Carbon Dioxide 24 mmol/L (22-30) 04/10/17 07:13 Anion Gap 18 mmol/L 04/10/17 07:13 BUN 6 mg/dL (7-17) L 04/10/17 07:13 Creatinine 0.3 mg/dL (0.7-1.2) L D 04/10/17 07:13 Estimated GFR > 60 ml/min 04/10/17 07:13 BUN/Creatinine Ratio 20.00 % 04/10/17 07:13 Glucose 98 mg/dL (65-100) 04/10/17 07:13 Calcium 8.7 mg/dL (8.4-10.2) 04/10/17 07:13 Total Bilirubin 3.70 mg/dL (0.1-1.2) H 04/10/17 07:13 AST 66 units/L (5-40) H 04/10/17 07:13 ALT 165 units/L (7-56) H 04/10/17 07:13 Alkaline Phosphatase 367 units/L (35-129) H 04/10/17 07:13 Total Protein 5.9 g/dL (6.3-8.2) L 04/10/17 07:13 Albumin 3.6 g/dL (3.9-5) L 04/10/17 07:13 Albumin/Globulin Ratio 1.6 % 04/10/17 07:13 Lipase 35 units/L (13-60) 04/07/17 22:12 Urine Color Cathie (Yellow) 04/07/17 Unknown Urine Turbidity Clear (Clear) 04/07/17 Unknown Urine pH 7.0 (5.0-7.0) 04/07/17 Unknown Ur Specific [place] 1.010 (1.003-1.030) 04/07/17 Unknown Urine Protein <15 mg/dl mg/dL (Negative) 04/07/17 Unknown Urine Glucose (UA) Neg mg/dL (Negative) 04/07/17 Unknown Urine Ketones Neg mg/dL (Negative) 04/07/17 Unknown Urine Blood Mod (Negative) 04/07/17 Unknown Urine Nitrite Neg (Negative) 04/07/17 Unknown Urine Bilirubin Neg (Negative) 04/07/17 Unknown Urine Urobilinogen 4.0 mg/dL (<2.0) 04/07/17 Unknown Ur Leukocyte Esterase Tr (Negative) 04/07/17 Unknown Urine WBC (Auto) 2.0 /HPF (0.0-6.0) 04/07/17 Unknown Urine RBC (Auto) 3.0 /HPF (0.0-6.0) 04/07/17 Unknown U Epithel Cells (Auto) 2.0 /HPF (0-13.0) 04/07/17 Unknown Urine Bacteria (Auto) 3+ /HPF (Negative) 04/07/17 Unknown Urine HCG, Qual Negative (Negative) 04/07/17 Unknown
--- NOTE | 2017-04-10 14:02 | Progress Note ---
Assessment and Plan Pt feeling better. s/p successful ERCP yest. sphincerotomy also performed Abd soft. non tender T Tonio higher today 3.7 surgically stable attempt cl liq diet monitor labs if stable and continues clinically improving, would rec wait 2-3 wks for semi- elective lap GB to allow biliary tree to decompress and reduce chances of leak or iatrogenic injuries Selected Entries 04/10/17 08:00 Temperature 97.9 F Pulse Rate [ 78 Left] Respiratory 18 Rate Blood Pressure 114/78 [Right Arm] Laboratory Tests 04/10/17 07:13 Total Bilirubin 3.70 H AST 66 H ALT 165 H Alkaline Phosphatase 367 H Objective Vital Signs - 12hr 04/10/17 08:00 Temperature 97.9 F Pulse Rate [ 78 Left] Respiratory 18 Rate Blood Pressure 114/78 [Right Arm] O2 Sat by Pulse 99 Oximetry - Labs 04/09/17 05:13 04/10/17 07:13 Diabetes panel 04/10/17 Range/Units 07:13 Sodium 142 (137-145) mmol/L Potassium 3.6 (3.6-5.0) mmol/L Chloride 104.0 (98-107) mmol/L Carbon Dioxide 24 (22-30) mmol/L BUN 6 L (7-17) mg/dL Creatinine 0.3 L D (0.7-1.2) mg/dL Glucose 98 (65-100) mg/dL Calcium 8.7 (8.4-10.2) mg/dL AST 66 H (5-40) units/L ALT 165 H (7-56) units/L Alkaline Phosphatase 367 H (35-129) units/L Total Protein 5.9 L (6.3-8.2) g/dL Albumin 3.6 L (3.9-5) g/dL Calcium panel 04/10/17 Range/Units 07:13 Calcium 8.7 (8.4-10.2) mg/dL Albumin 3.6 L (3.9-5) g/dL Pituitary panel 04/10/17 Range/Units 07:13 Sodium 142 (137-145) mmol/L Potassium 3.6 (3.6-5.0) mmol/L Chloride 104.0 (98-107) mmol/L Carbon Dioxide 24 (22-30) mmol/L BUN 6 L (7-17) mg/dL Creatinine 0.3 L D (0.7-1.2) mg/dL Glucose 98 (65-100) mg/dL Calcium 8.7 (8.4-10.2) mg/dL Adrenal panel 04/10/17 Range/Units 07:13 Sodium 142 (137-145) mmol/L Potassium 3.6 (3.6-5.0) mmol/L Chloride 104.0 (98-107) mmol/L Carbon Dioxide 24 (22-30) mmol/L BUN 6 L (7-17) mg/dL Creatinine 0.3 L D (0.7-1.2) mg/dL Glucose 98 (65-100) mg/dL Calcium 8.7 (8.4-10.2) mg/dL Total Bilirubin 3.70 H (0.1-1.2) mg/dL AST 66 H (5-40) units/L ALT 165 H (7-56) units/L Alkaline Phosphatase 367 H (35-129) units/L Total Protein 5.9 L (6.3-8.2) g/dL Albumin 3.6 L (3.9-5) g/dL
--- NOTE | 2017-04-10 14:42 | Gastroenterology Progress Note ---
Assessment and Plan 1. Choledocholithiasis -S/P ERCP with multiple filling defects and removal of several large stones, sphincterotomy. -Avoid NSAIDS x 7 days. -LFTS improved. -ABX for 48 hrs total. -Clear liquid diet, if tolerated advance to fulls. -CCY per surgery. Subjective Date of service: 04/10/17 Interval history: S/P ERCP Objective - Constitutional Vitals: Temp Pulse Resp BP Pulse Ox 97.9 F 78 18 114/78 99 04/10/17 08:00 04/10/17 08:00 04/10/17 08:00 04/10/17 08:00 04/10/17 08:00 General appearance: no acute distress - EENT Eyes: EOM intact ENT: hearing intact - Neck Neck: supple - Respiratory Respiratory: bilateral: CTA - Cardiovascular Rhythm: regular Heart Sounds: Present: S1 & S2 - Gastrointestinal General gastrointestinal: Present: soft, non-tender - Integumentary Integumentary: Present: warm, dry - Labs CBC & Chem 7: 04/09/17 05:13 04/10/17 07:13 Labs: Laboratory Results - last 24 hr 04/10/17 07:13 Sodium 142 Potassium 3.6 Chloride 104.0 Carbon Dioxide 24 Anion Gap 18 BUN 6 L Creatinine 0.3 L D Estimated GFR > 60 BUN/Creatinine Ratio 20.00 Glucose 98 Calcium 8.7 Total Bilirubin 3.70 H AST 66 H ALT 165 H Alkaline Phosphatase 367 H Total Protein 5.9 L Albumin 3.6 L Albumin/Globulin Ratio 1.6
[2017-04-11 05:11] LABS: Basophils % (Auto) 0.6 % (0.0-1.8); Eosinophils % (Auto) 3.5 % (0.0-4.3); Hemoglobin 13.5 gm/dl (10.1-14.3); Mean Corpuscular HGB Conc 34 % (30-34); Mean Corpuscular Hemoglobin 31 pg (28-32); Mean Corpuscular Volume 93 fl (79-97); Platelet Count 192 K/mm3 (140-440); Red Blood Count 4.32 M/mm3 (3.65-5.03); Red Cell Distribution Width 13.7 % (13.2-15.2); White Blood Count 6.2 K/mm3 (4.5-11.0)
[2017-04-11 05:24] LABS: Alanine Aminotransferase 164 units/L (7-56); Albumin 3.8 g/dL (3.9-5); Albumin/Globulin Ratio 1.5 %; Alkaline Phosphatase 366 units/L (35-129); Amylase 55 units/L (27-131); Anion Gap 20 mmol/L; BUN/Creatinine Ratio 36.66; Blood Urea Nitrogen 11 mg/dL (7-17); Carbon Dioxide 22 mmol/L (22-30); Chloride 100.7 mmol/L (98-107); Glucose 79 mg/dL (65-100); Potassium 3.7 mmol/L (3.6-5.0); Sodium 139 mmol/L (137-145); Total Protein 6.4 g/dL (6.3-8.2)
[2017-04-11 07:05] VITALS: BP 99/69
--- NOTE | 2017-04-11 09:30 | Fluoroscopy Report ---
FLUOROSCOPY ERCP BILIARY DUCT History: Choledocholithiasis. Findings: Fluoroscopy was provided by radiology during ERCP by Dr. Barahona. 6 fluoroscopic images were captured. An endoscope cannulates the ampulla of Vater for retrograde administration of contrast agent into the biliary tree. The images demonstrate a dilated common bile duct over 1 cm with numerous filling defects consistent with stones. The stones were removed by balloon sweep technique. Papillotomy and sphincterotomy were performed. Please correlate with the procedural report by Dr. Barahona. Impression: Successful removal of common bile duct stones under fluoroscopy.
[2017-04-11] MEDS: PROTONIX PO SCH (10:26)
[2017-04-11] MEDS: LEVAQUIN 750MG/150ML 750 MG/150 ML BAG IV SCH (10:26)
--- NOTE | 2017-04-11 11:01 | Discharge Summary ---
Providers - Providers Date of Admission: 04/08/17 12:25 Date of discharge: 04/11/17 Attending physician: OSIEL AVILA 04/09/17 09:48 Consult to Physician [CONS] Routine Consulting Provider: SAMANTHA TRAVIS Reason For Exam: ERCP Place consult to:: DR. TRAVIS Notified:: OFFICE Phone number called:: [phone] Was contact made?: Yes Time called:: 10:23 Comment:: CONSULT COMPLETED - SCOTT Primary care physician: C D AREA SUPERVISOR Hospitalization Reason for admission: abd pain Condition: Stable Hospital course: The patient is a 31 yo female admitted with RUQ, N, and vomiting. She was noted to have elevated LFTs on admission, and an US was done that revealed gallstones and a dilated CBD. She then had an MRCP, and multiple large stones were seen. Patient then underwent ERCP with multiple filling defects and removal of several large stones as well as sphincterotomy. GI recommends avoiding NSAIDs 7 days. Patient will have further follow-up with surgery as an outpatient for possible cholecystectomy. Patient is felt to have received maximal hospital benefit and will be discharged home. That at discharge time 35 minutes. Disposition: DISCHARGED TO HOME OR SELFCARE Time spent for discharge: 35 - Discharge Diagnoses (1) Choledocholithiasis with chronic cholecystitis Status: Acute (2) Cholelithiasis Status: Acute Qualifiers: Cholelithiasis location: gallbladder Cholecystitis presence: without cholecystitis Cholangitis presence: C Cholecystitis acuity: C Cholangitis acuity: C Biliary obstruction: with biliary obstruction Qualified Code(s): K80.21 - Calculus of gallbladder without cholecystitis with obstruction (3) Chronic cholecystitis due to cholelithiasis with choledocholithiasis Status: Acute (4) DVT prophylaxis Status: Acute (5) HTN (hypertension) Status: Acute Qualifiers: Hypertension type: H Core Measure Documentation - Palliative Care Palliative Care/ Comfort Measures: Not Applicable - Core Measures Any of the following diagnoses?: none Exam - Constitutional Vitals: Temp Pulse Resp BP Pulse Ox 97.9 F 78 16 99/69 98 04/11/17 04:00 04/11/17 04:00 04/11/17 04:00 04/11/17 04:00 04/11/17 04:00 General appearance: Present: no acute distress, well-nourished - EENT Eyes: Present: PERRL ENT: hearing intact, clear oral mucosa - Neck Neck: Present: supple, normal ROM - Respiratory Respiratory effort: normal Respiratory: bilateral: CTA - Cardiovascular Heart Sounds: Present: S1 & S2. Absent: rub, click - Extremities Extremities: pulses symmetrical, No edema Peripheral Pulses: within normal limits - Abdominal General gastrointestinal: Present: soft, non-tender, non-distended, normal bowel sounds Female genitourinary: Present: normal - Integumentary Integumentary: Present: clear, warm, dry - Musculoskeletal Musculoskeletal: gait normal, strength equal bilaterally - Psychiatric Psychiatric: appropriate mood/affect, intact judgment & insight - Neurologic Neurologic: CNII-XII intact, moves all extremities Plan Activity: no restrictions Weight Bearing Status: Full Weight Bearing Diet: low fat, low cholesterol Follow up with: PRIMARY CARE, [Primary Care Provider] - 3-5 Days EDEN RAMOS MD [Staff Physician] - 7 Days MIREYA MONROY MD [Staff Physician] - 7 Days Prescriptions: oxyCODONE /ACETAMINOPHEN [Percocet 5/325] 1 tab PO Q4HR #25 tab
--- NOTE | 2017-04-11 15:29 | Progress Note ---
Assessment and Plan Pt not in room. deepthi diet as per RN GI note noted decreasing T Tonio stable rto this tues if d/c'ed today Selected Entries 04/11/17 04/11/17 04:00 10:00 Temperature 97.9 F Pulse Rate [ 82 Left] Respiratory 18 Rate Blood Pressure 99/69 [Right Arm] Laboratory Tests 04/10/17 04/11/17 04/11/17 07:13 03:08 03:08 WBC 6.2 Hgb 13.5 Hct 40.0 Sodium 139 Potassium 3.7 Chloride 100.7 Carbon Dioxide 22 Anion Gap 20 BUN 11 Creatinine 0.3 L Total Bilirubin 3.70 H 2.30 H AST 68 H ALT 164 H Alkaline Phosphatase 366 H Objective Vital Signs - 12hr 04/11/17 04/11/17 04:00 10:00 Temperature 97.9 F Pulse Rate [ 78 82 Left] Respiratory 16 18 Rate Blood Pressure 99/69 [Right Arm] O2 Sat by Pulse 98 Oximetry - Labs 04/11/17 03:08 04/11/17 03:08 Diabetes panel 04/11/17 Range/Units 03:08 Sodium 139 (137-145) mmol/L Potassium 3.7 (3.6-5.0) mmol/L Chloride 100.7 (98-107) mmol/L Carbon Dioxide 22 (22-30) mmol/L BUN 11 (7-17) mg/dL Creatinine 0.3 L (0.7-1.2) mg/dL Glucose 79 (65-100) mg/dL Calcium 9.0 (8.4-10.2) mg/dL AST 68 H (5-40) units/L ALT 164 H (7-56) units/L Alkaline Phosphatase 366 H (35-129) units/L Total Protein 6.4 (6.3-8.2) g/dL Albumin 3.8 L (3.9-5) g/dL Calcium panel 04/11/17 Range/Units 03:08 Calcium 9.0 (8.4-10.2) mg/dL Albumin 3.8 L (3.9-5) g/dL Pituitary panel 04/11/17 Range/Units 03:08 Sodium 139 (137-145) mmol/L Potassium 3.7 (3.6-5.0) mmol/L Chloride 100.7 (98-107) mmol/L Carbon Dioxide 22 (22-30) mmol/L BUN 11 (7-17) mg/dL Creatinine 0.3 L (0.7-1.2) mg/dL Glucose 79 (65-100) mg/dL Calcium 9.0 (8.4-10.2) mg/dL Adrenal panel 04/11/17 Range/Units 03:08 Sodium 139 (137-145) mmol/L Potassium 3.7 (3.6-5.0) mmol/L Chloride 100.7 (98-107) mmol/L Carbon Dioxide 22 (22-30) mmol/L BUN 11 (7-17) mg/dL Creatinine 0.3 L (0.7-1.2) mg/dL Glucose 79 (65-100) mg/dL Calcium 9.0 (8.4-10.2) mg/dL Total Bilirubin 2.30 H (0.1-1.2) mg/dL AST 68 H (5-40) units/L ALT 164 H (7-56) units/L Alkaline Phosphatase 366 H (35-129) units/L Total Protein 6.4 (6.3-8.2) g/dL Albumin 3.8 L (3.9-5) g/dL
== END 2017-04-11 14:50 | disposition home or self-care (01) | DRG 445 ==
LOC: ED 21:48 → 2B-SURG 04-08 12:25
PROVIDERS: ADMIT Internal Medicine; ATTEND Hospitalist
PROC: 0FC98ZZ Extirpation of Matter from Common Bile Duct, Via Natural or Artificial Opening Endoscopic (ICD-10-PCS; principal; 2017-04-09)
DX: K80.21 Calculus of gallbladder without cholecystitis with obstruction (principal); K80.64 Calculus of gallbladder and bile duct with chronic cholecystitis without obstruction; K83.8 Other specified diseases of biliary tract; I10 Essential (primary) hypertension
CPT/HCPCS: 36415; 74181; 74328; 76705; 80048; 80053; 81001; 81025; 82150; 83690; 85025; 85610; 85730; 90686; 96361; 96365; 96375; 96376; C1726; J1956; J2250; J2270; J2405; J2704; J7030; J7042; Q9967

== ENCOUNTER 2017-05-12 11:02 | Inpatient (IN) | payer OTHER ==
[~2017-05-12 11:02] MED LIST: ANCEF/STERILE WATER 2 GM/20 ML 2 GM/20 ML SYRINGE IV SCH
[2017-05-12] MEDS ORDERED: NACL BACTERIOSTATIC INFILTRATI ONE (12:09)
[2017-05-12] MEDS ORDERED: MARCAINE 0.5% 0 ML INFILTRATI ONE (12:17)
[2017-05-12] MEDS ORDERED: MARCAINE-EPI/PF 0.5%-1:200,000 INFILTRATI ONE (12:18)
--- NOTE | 2017-05-12 12:19 | Anesthesia Consultation ---
Anesthesia Consult and Med Hx Date of service: 05/12/17 - Airway Anesthetic Teeth Evaluation: Good ROM Head & Neck: Adequate Mental/Hyoid Distance: Adequate Mallampati Class: Class II Intubation Access Assessment: Probably Good - Pulmonary Exam CTA: Yes - Cardiac Exam Cardiac Exam: RRR - Pre-Operative Health Status ASA Pre-Surgery Classification: ASA1 Proposed Anesthetic Plan: General - Pre-Anesthesia Comment Pre-Anesthesia Comments: Hx of stone in gallbladder, had ERCP done last month - Pulmonary Hx Smoking: No Hx Asthma: No Hx Respiratory Symptoms: Yes (recent cold with mild cough, clear BS) Hx Sleep Apnea: No - Cardiovascular System Hx Hypertension: No Hx Heart Attack/AMI: No - Central Nervous System Hx Seizures: No CVA: No - Endocrine Hx Renal Disease: No Hx Liver Disease: No Hx Non-Insulin Dependent Diabetes: No - Other Systems Hx Alcohol Use: No Hx Cancer: No - Additional Comments Anesthesia Medical History Comments: NAC
--- NOTE | 2017-05-12 12:20 | Anesthesia Day of Surgery ---
Anesthesia Day of Surgery - Day of Surgery Patient Examined: Yes Patient H&P Reviewed: Yes Patient is NPO: Yes
[2017-05-12 12:45] LABS: Basophils % (Auto) 0.8 % (0.0-1.8); Eosinophils % (Auto) 1.9 % (0.0-4.3); Hematocrit 39.1 % (30.3-42.9); Hemoglobin 13.2 gm/dl (10.1-14.3); Mean Corpuscular HGB Conc 34 % (30-34); Mean Corpuscular Hemoglobin 31 pg (28-32); Mean Corpuscular Volume 91 fl (79-97); Platelet Count 228 K/mm3 (140-440); Red Blood Count 4.28 M/mm3 (3.65-5.03); Red Cell Distribution Width 14.1 % (13.2-15.2); White Blood Count 6.2 K/mm3 (4.5-11.0)
[2017-05-12] MEDS ORDERED: DIPRIVAN 10 MG/ML IV ONE (12:47)
[2017-05-12] MEDS ORDERED: SUBLIMAZE ONE (12:47)
[2017-05-12] MEDS ORDERED: XYLOCAINE MPF 2% ONE (12:48)
[2017-05-12] MEDS ORDERED: ROBINUL ONE ×2 (12:48→13:38)
[2017-05-12] MEDS ORDERED: ZEMURON IV ONE (12:49)
[2017-05-12] MEDS ORDERED: NACL 0.9% 250ML 0 ML ONE (12:49)
[2017-05-12] MEDS ORDERED: LACTATED RINGERS 1,000 ML IV SCH (13:00)
[2017-05-12] MEDS ORDERED: PEPCID PO NR (13:00)
[2017-05-12] MEDS ORDERED: VERSED IV NR (13:00)
[2017-05-12] MEDS ORDERED: MARCAINE-EPI 0.5%-1:200,000 INFILTRATI ONE (13:21)
[2017-05-12] MEDS ORDERED: NACL 0.9% IR ONE ×2 (13:21)
[2017-05-12] MEDS ORDERED: DILAUDID ONE (13:23)
[2017-05-12 13:25] LABS: Alanine Aminotransferase 11 units/L (7-56); Albumin/Globulin Ratio 1.3 %; Alkaline Phosphatase 87 units/L (35-129); Amylase 47 units/L (27-131); Anion Gap 18 mmol/L; Blood Urea Nitrogen 9 mg/dL (7-17); Calcium 8.8 mg/dL (8.4-10.2); Carbon Dioxide 23 mmol/L (22-30); Chloride 103.2 mmol/L (98-107); Glucose 87 mg/dL (65-100); Potassium 3.9 mmol/L (3.6-5.0); Sodium 140 mmol/L (137-145); Total Protein 7.2 g/dL (6.3-8.2)
[2017-05-12] MEDS ORDERED: DECADRON ONE (13:28)
[2017-05-12] MEDS ORDERED: ZOFRAN ONE (13:28)
[2017-05-12] MEDS ORDERED: NEOSTIGMINE ONE (13:38)
[2017-05-12] MEDS: DILAUDID IV PRN ×3 (15:40→22:56)
[2017-05-12] MEDS: LEVAQUIN 500MG/100ML 500 MG/100 ML BAG IV SCH (17:20)
[2017-05-12] MEDS ORDERED: LACTATED RINGERS 1,000 ML ONE (18:10)
--- NOTE | 2017-05-12 19:38 | Operative Report ---
PREOPERATIVE DIAGNOSIS: Gallbladder disease. POSTOPERATIVE DIAGNOSIS: Gallbladder disease. PROCEDURE: 1. Attempted laparoscopic cholecystectomy. 2. Conversion to open cholecystectomy. SURGEON: Addison Mccoy MD. HEEL CEMENTER: Dr. West. ANESTHESIA: General. ESTIMATED BLOOD LOSS: Minimal. DRAINS: One 19 Bartolome drain left with no complications. DESCRIPTION OF PROCEDURE: The patient was taken to the operating room, prepped and draped in usual sterile fashion. Veress needle was inserted and CO2 insufflation begun. A 5 mm trocar was then inserted and camera inserted. All other trocars were inserted under direct visualization. Gallbladder was noted to be pale and somewhat thickened and distended, full of stones. Gallbladder was grasped at the fundus and infundibulum and retracted towards the right subphrenic space. Dissection was then carried out along the Calot's triangle. The infundibulum was noted to be quite thickened and it was difficult to identify the junction of the neck with the cystic duct. Very slow and tedious dissection was carried out with Endo Kittner's as well as instrumentation. Eventually, the neck of the gallbladder was able to be identified, but again was very wide and thickened. Clips could not secure this area. It was then decided to transect the gallbladder at the neck in an attempt to close the stump with Endoloops. This was attempted on multiple occasions, but again due to the thickness a good secure tie could not be achieved to our satisfaction. At this point, it was decided to convert to open cholecystectomy. A right subcostal incision was made and abdomen entered. The gallbladder was isolated with laps from the transverse colon and the stomach. Dissection was carried out from fundus down towards the infundibulum. At this point, the cystic artery was identified and secured. The cystic duct stump was once again identified. The area was then gently grasped with a right angle and doubly tied with 2-0 Vicryl sutures. The area was then irrigated copiously and dried. Checked for hemostasis, noted to be dry. The suture and clips were all noted to be securely in place with no evidence of bleeding or bile leak. A 19-Bartolome was left draining the gallbladder fossa. The drain was brought through a separate stab incision and secured to the skin with a 2-0 silk suture. The posterior fascia was closed with running ____ Vicryl suture. The anterior fascia closed with #1 Vicryl pop-offs. Subcutaneous tissues irrigated and skin closed with xin. 0.5% Marcaine was then infiltrated over the fascia as well as subcutaneous and skin for postoperative pain relief. Fluffs and dressings applied. The patient tolerated procedure well and left the OR in stable condition. JOB# [id number] ASHKAN/LORENA
[2017-05-12] MEDS: ZOFRAN IV PRN (22:56)
[2017-05-13] MEDS: MORPHINE IV PRN ×2 (07:00→12:35)
[2017-05-13 07:12] LABS: Basophils % (Auto) 0.1 % (0.0-1.8); Hematocrit 39.1 % (30.3-42.9); Hemoglobin 13.1 gm/dl (10.1-14.3); Mean Corpuscular HGB Conc 34 % (30-34); Mean Corpuscular Hemoglobin 31 pg (28-32); Mean Corpuscular Volume 92 fl (79-97); Platelet Count 228 K/mm3 (140-440); Red Blood Count 4.26 M/mm3 (3.65-5.03); White Blood Count 14.1 K/mm3 (4.5-11.0)
[2017-05-13 07:28] LABS: Alanine Aminotransferase 42 units/L (7-56); Albumin 3.8 g/dL (3.9-5); Albumin/Globulin Ratio 1.2 %; Alkaline Phosphatase 81 units/L (35-129); Anion Gap 18 mmol/L; Blood Urea Nitrogen 4 mg/dL (7-17); Calcium 8.6 mg/dL (8.4-10.2); Carbon Dioxide 22 mmol/L (22-30); Chloride 101.4 mmol/L (98-107); Glucose 96 mg/dL (65-100); Potassium 3.9 mmol/L (3.6-5.0); Sodium 137 mmol/L (137-145)
[2017-05-13] MEDS: ZOFRAN IV PRN (12:35)
[2017-05-13] MEDS: D5W/0.45% NACL/KCL 30 MEQ 30 MEQ/1,000 ML BAG IV SCH (12:45)
--- NOTE | 2017-05-13 15:02 | Progress Note ---
Assessment and Plan POD # 1 Pt feeling well without compl. minimal drainage from AD. Ambulating Abd soft. non tender stable T Tonio - wnl continue present care Selected Entries 05/13/17 05/13/17 12:00 12:35 Temperature 98.9 F Pulse Rate [ 81 Right From Monitor] Respiratory 16 Rate Blood Pressure 114/79 [Left Arm] Laboratory Tests 05/12/17 05/13/17 05/13/17 12:25 06:37 06:37 WBC 14.1 H Total Bilirubin 0.40 0.60 AST 13 38 ALT 11 42 Alkaline Phosphatase 87 81 Objective Vital Signs - 12hr 05/13/17 05/13/17 05/13/17 03:45 07:10 07:30 Temperature 98.5 F 98.7 F Pulse Rate [ 85 78 Right From Monitor] Respiratory 16 18 20 Rate Blood Pressure 113/81 110/73 [Left Arm] O2 Sat by Pulse 99 97 Oximetry 05/13/17 05/13/17 12:00 12:35 Temperature 98.9 F Pulse Rate [ 81 Right From Monitor] Respiratory 18 16 Rate Blood Pressure 114/79 [Left Arm] O2 Sat by Pulse Oximetry - Labs 05/13/17 06:37 05/13/17 06:37 Diabetes panel 05/13/17 Range/Units 06:37 Sodium 137 (137-145) mmol/L Potassium 3.9 (3.6-5.0) mmol/L Chloride 101.4 (98-107) mmol/L Carbon Dioxide 22 (22-30) mmol/L BUN 4 L (7-17) mg/dL Creatinine 0.4 L (0.7-1.2) mg/dL Glucose 96 (65-100) mg/dL Calcium 8.6 (8.4-10.2) mg/dL AST 38 (5-40) units/L ALT 42 (7-56) units/L Alkaline Phosphatase 81 (35-129) units/L Total Protein 7.0 (6.3-8.2) g/dL Albumin 3.8 L (3.9-5) g/dL Calcium panel 05/13/17 Range/Units 06:37 Calcium 8.6 (8.4-10.2) mg/dL Albumin 3.8 L (3.9-5) g/dL Pituitary panel 05/13/17 Range/Units 06:37 Sodium 137 (137-145) mmol/L Potassium 3.9 (3.6-5.0) mmol/L Chloride 101.4 (98-107) mmol/L Carbon Dioxide 22 (22-30) mmol/L BUN 4 L (7-17) mg/dL Creatinine 0.4 L (0.7-1.2) mg/dL Glucose 96 (65-100) mg/dL Calcium 8.6 (8.4-10.2) mg/dL Adrenal panel 05/13/17 Range/Units 06:37 Sodium 137 (137-145) mmol/L Potassium 3.9 (3.6-5.0) mmol/L Chloride 101.4 (98-107) mmol/L Carbon Dioxide 22 (22-30) mmol/L BUN 4 L (7-17) mg/dL Creatinine 0.4 L (0.7-1.2) mg/dL Glucose 96 (65-100) mg/dL Calcium 8.6 (8.4-10.2) mg/dL Total Bilirubin 0.60 (0.1-1.2) mg/dL AST 38 (5-40) units/L ALT 42 (7-56) units/L Alkaline Phosphatase 81 (35-129) units/L Total Protein 7.0 (6.3-8.2) g/dL Albumin 3.8 L (3.9-5) g/dL
[2017-05-13] MEDS: LEVAQUIN 500MG/100ML 500 MG/100 ML BAG IV SCH (17:24)
--- NOTE | 2017-05-13 18:51 | Admit Criteria Form ---
Admission Criteria Documentation: AMBULATORY SURGERY EXCEPTION CRITERIA Ambulatory Surgery Exception Criteria ( Place 'X' for any and all applicable criteria): Surgery or procedure performed on ambulatory basis may require inpatient stay for[A] ANY ONE of the following(1)(2)(3)(4)(5)(6)(7)(8)(9): [] I. A preoperative situation, condition, or finding that warrants inpatient stay as indicated by ANY ONE of the following: [] a) Inpatient care needed because of severity of a disease or condition rather than the surgery (eg, severe cardiac or respiratory disease, severe infection) (15) (16 ) (17) (18) [] b) Emergent procedure (eg, angioplasty for acute ischemia)(19) [] c) Complex surgical approach or situation as indicated by ANY ONE of the following(3): [] i) Open approach needed instead of usual endoscopic, transcatheter, or other less invasive procedure [] ii) Difficult approach because of previous operation [] iii) Airway monitoring required after open neck procedures(20)(21) [] iv) Large mass requiring unusually extensive dissection [] v) Additional complicating feature requiring inpatient care (eg, drain management)(22(23): [] d) Major surgery in a pt with high anesthetic risk as indicated by ANY ONE of the following (2)(3)(5)(7)(8): [] i) ASA risk class III or higher (severe systemic disease impairing function) [D] [] ii) Advanced age (eg, older than 85 years)(14)(24) [] iii) Symptomatic heart failure(25) [] iv) Symptomatic asthma or COPD(8)(21) [] v) Morbid obesity with hemodynamic or respiratory problems(20)( 21)(26)(27) [] vi) Obstructive sleep apnea(20)(21) [] vii) Former premature infants who are younger than 60 weeks [] viii) High risk for severe postoperative abnormalities (eg, severe postoperative hypocalcemia after parathyroidectomy for severe hyperparathyroidism)(27)( 28) [] ix) Unstable angina(25) [] e) Drug-related risk requiring inpatient stay as indicated by ANY ONE of the following(5)(10)(14)(32)(33) [] i) Procedure requires discontinuing drugs or other therapy (eg , antiarrhythmic medication, antiseizure medication), which necessitates inpatient observation or treatment.(18)(31) [] ii) Major surgery and high risk drug use as indicated by ANY ONE of the following: [] 1) Active abuse of cocaine or similar drug [] 2) Monoamine oxidase inhibitor use [] 3) Other drug identified as posing risk [] f) Inadequate outpatient care situation as indicated by ANY ONE of the following(5)(10)(14)(32)(33) [] i) Patient lives remote from medical facility and procedure has urgent complication potential, and temporary nearby residence cannot be arranged [] ii) Patient will have postprocedure incapacitation and inadequate assistance at home, or alternative level of care cannot be arranged. [] iii) Patient will have long general anesthesia or procedure side effect resolution time, and competent person to stay with patient on first postoperative night at home or alternative level of care cannot be arranged. []iv) Other inadequate outpatient situation that cannot be handled by other means [X] II. A perioperative event, condition, or finding that warrants inpatient stay as indicated by ANY ONE of the following (1)(2)(3): [] a) Inadequate physiologic recovery: cardiovascular, respiratory, or hemodynamic status not normal or near preoperative baseline(18) [] b) Hemodynamic instability [] c) Patient not alert with near normal or baseline mental status [] d) Temperature not normal or as expected and not appropriate for outpatient treatment of condition [] e) Ambulatory or appropriate activity level status not yet achieved post procedure [E](34)(35)(36) [] f) Operative site not appropriate (eg, unexpected or excessive drainage or bleeding) [] g) Postoperative effects not resolved or adequately managed (eg, significant pain or vomiting not appropriate for outpatient or next level of care)(10)(12) [X] h) Complicating features requiring inpatient care as indicated by ANY ONE of the following(37): [] i) Severe complications of procedure (eg, bowel injury, airway compromise, vascular injury,severe hemorrhage) [] ii) Extensive (eg, dissection far beyond usual scope of procedure ) or prolonged (eg, 120 minutes beyond usual) surgery needed requiring inpatient postoperative care [X] iii) Conversion to an open or complex procedure that requires inpatient care (eg, open vs laparoscopic cholecystectomy, abdominal vs vaginal hysterectomy)(38) [] iv) Comorbid condition or test result identified during or post procedure that requires inpatient care (7) [] v) Malignant hyperthermia(30) [] vi) Other complicating feature requiring inpatient care(22)(23) Inpatient stay may be needed until ALL of the following are present (1)(2)(3)(4) (5)(6)(10)(14)(33)(40): []a) Physiologic recovery: cardiovascular, respiratory, and hemodynamic status normal or near preoperative baseline []b) Hemodynamic stability []c) Patient alert, with near normal or baseline mental status []d) Temperature appropriate: patient afebrile or temperature appropriate for outpt treatment of condition []e) Activity level appropriate: ambulatory or appropriate activity level post procedure []f) Operative site appropriate as indicated by ALL of the following: []i) Site dry or with expected drainage []ii) Any blood noted is as expected for procedure. []g) Postoperative effects resolved or managed as indicated by ALL of the following: []i) Pain management appropriate for outpatient (or next level of) care(10) []ii) Minimal nausea and vomiting: if present, successfully treated with oral medication(12) []iii) Headache, dizziness, or drowsiness (if present) are mild. []h) Voiding status acceptable as indicated by ANY ONE of the following: []i) Voiding spontaneously []ii) No voiding but instructions given for follow-up in 6 to 8 hours []iii) Urinary catheter in place, and instructions given for follow-up []i) Complicating features requiring inpatient care manageable at a lower level of care(37) []j) Comorbid conditions manageable at a lower level of care(37) The original [employer] content created by [employer] has been revised. The portions of the content which have been revised are identified through the use of italic text or in bold, and [email or web address] has neither reviewed nor approved the modified material. All other unmodified content is copyright [employer]. Please see references footnoted in the original [employer] edition 2016 Admission Criteria Met: Yes
[2017-05-14] MEDS: D5W/0.45% NACL/KCL 30 MEQ 30 MEQ/1,000 ML BAG IV SCH ×3 (01:14→22:30)
[2017-05-14] MEDS: MORPHINE IV PRN ×4 (01:14→21:40)
--- NOTE | 2017-05-14 12:31 | Progress Note ---
Assessment and Plan POD #2 Pt feeling well. neg abd pain Abd soft, dressings dry. minimal AD drainage stable attempt cl liq diet Selected Entries 05/14/17 07:05 Temperature 98.8 F Pulse Rate [ 98 H Right From Monitor] Respiratory 18 Rate Blood Pressure 105/65 [Left Arm] Objective Vital Signs - 12hr 05/14/17 05/14/17 06:28 07:05 Temperature 98.8 F 98.8 F Pulse Rate [ 97 H 98 H Right From Monitor] Respiratory 16 18 Rate Blood Pressure 95/65 105/65 [Left Arm] O2 Sat by Pulse 99 Oximetry - Labs 05/13/17 06:37 05/13/17 06:37
[2017-05-14] MEDS: LEVAQUIN 500MG/100ML 500 MG/100 ML BAG IV SCH (16:54)
[2017-05-15] MEDS: ZOFRAN IV PRN ×2 (00:40→21:45)
[2017-05-15] MEDS: MORPHINE IV PRN ×3 (02:10→21:44)
[2017-05-15 06:34] LABS: Alanine Aminotransferase 24 units/L (7-56); Albumin 3.4 g/dL (3.9-5); Albumin/Globulin Ratio 1.2 %; Alkaline Phosphatase 79 units/L (35-129); Anion Gap 17 mmol/L; Blood Urea Nitrogen 3 mg/dL (7-17); Calcium 8.7 mg/dL (8.4-10.2); Carbon Dioxide 22 mmol/L (22-30); Chloride 101.8 mmol/L (98-107); Glucose 121 mg/dL (65-100); Potassium 4.2 mmol/L (3.6-5.0); Sodium 137 mmol/L (137-145); Total Protein 6.3 g/dL (6.3-8.2)
[2017-05-15 06:42] LABS: Basophils % (Auto) 0.4 % (0.0-1.8); Eosinophils % (Auto) 1.6 % (0.0-4.3); Hematocrit 35.7 % (30.3-42.9); Hemoglobin 12.1 gm/dl (10.1-14.3); Mean Corpuscular HGB Conc 34 % (30-34); Mean Corpuscular Hemoglobin 31 pg (28-32); Mean Corpuscular Volume 92 fl (79-97); Platelet Count 233 K/mm3 (140-440); Red Blood Count 3.88 M/mm3 (3.65-5.03); White Blood Count 9.8 K/mm3 (4.5-11.0)
[2017-05-15] MEDS: D5W/0.45% NACL/KCL 30 MEQ 30 MEQ/1,000 ML BAG IV SCH ×3 (06:45→21:45)
[2017-05-15] MEDS: LEVAQUIN 500MG/100ML 500 MG/100 ML BAG IV SCH (17:03)
--- NOTE | 2017-05-15 18:07 | Progress Note ---
Assessment and Plan Pt feeling well. no compl. deepthi full liq diet Abd soft, non tender. Incision clean & dry advance to solid low fat diet probable d/c in am if diet deepthi Selected Entries 05/15/17 15:27 Temperature 98.4 F Pulse Rate [ 94 H Right From Monitor] Respiratory 18 Rate Blood Pressure 110/74 [Right Arm] Laboratory Tests 05/15/17 05/15/17 05:57 05:57 WBC 9.8 Hgb 12.1 Hct 35.7 Sodium 137 Potassium 4.2 Chloride 101.8 Carbon Dioxide 22 BUN 3 L Creatinine 0.4 L Total Bilirubin 0.40 AST 16 ALT 24 Alkaline Phosphatase 79 Objective Vital Signs - 12hr 05/15/17 05/15/17 07:26 15:27 Temperature 98.9 F 98.4 F Pulse Rate [ 92 H 94 H Right From Monitor] Respiratory 20 18 Rate Blood Pressure 103/71 110/74 [Right Arm] O2 Sat by Pulse 98 Oximetry - Labs 05/15/17 05:57 05/15/17 05:57 Diabetes panel 05/15/17 Range/Units 05:57 Sodium 137 (137-145) mmol/L Potassium 4.2 (3.6-5.0) mmol/L Chloride 101.8 (98-107) mmol/L Carbon Dioxide 22 (22-30) mmol/L BUN 3 L (7-17) mg/dL Creatinine 0.4 L (0.7-1.2) mg/dL Glucose 121 H (65-100) mg/dL Calcium 8.7 (8.4-10.2) mg/dL AST 16 (5-40) units/L ALT 24 (7-56) units/L Alkaline Phosphatase 79 (35-129) units/L Total Protein 6.3 (6.3-8.2) g/dL Albumin 3.4 L (3.9-5) g/dL Calcium panel 05/15/17 Range/Units 05:57 Calcium 8.7 (8.4-10.2) mg/dL Albumin 3.4 L (3.9-5) g/dL Pituitary panel 05/15/17 Range/Units 05:57 Sodium 137 (137-145) mmol/L Potassium 4.2 (3.6-5.0) mmol/L Chloride 101.8 (98-107) mmol/L Carbon Dioxide 22 (22-30) mmol/L BUN 3 L (7-17) mg/dL Creatinine 0.4 L (0.7-1.2) mg/dL Glucose 121 H (65-100) mg/dL Calcium 8.7 (8.4-10.2) mg/dL Adrenal panel 05/15/17 Range/Units 05:57 Sodium 137 (137-145) mmol/L Potassium 4.2 (3.6-5.0) mmol/L Chloride 101.8 (98-107) mmol/L Carbon Dioxide 22 (22-30) mmol/L BUN 3 L (7-17) mg/dL Creatinine 0.4 L (0.7-1.2) mg/dL Glucose 121 H (65-100) mg/dL Calcium 8.7 (8.4-10.2) mg/dL Total Bilirubin 0.40 (0.1-1.2) mg/dL AST 16 (5-40) units/L ALT 24 (7-56) units/L Alkaline Phosphatase 79 (35-129) units/L Total Protein 6.3 (6.3-8.2) g/dL Albumin 3.4 L (3.9-5) g/dL
[2017-05-16] MEDS: D5W/0.45% NACL/KCL 30 MEQ 30 MEQ/1,000 ML BAG IV SCH (05:34)
[2017-05-16] MEDS: NORCO 5/325 PO PRN ×2 (09:25→17:11)
--- NOTE | 2017-05-16 15:58 | Progress Note ---
Assessment and Plan POD #5 Pt feeling well without compl. deepthi solid low fat diet Abd soft. +BS incision clean & dry surgically stable d/c roger d/c today rto tues for suture removal Selected Entries 05/16/17 07:40 Temperature 98.3 F Pulse Rate [ 86 Right From Monitor] Respiratory 20 Rate Blood Pressure 103/73 [Right Arm] Objective Vital Signs - 12hr 05/16/17 07:40 Temperature 98.3 F Pulse Rate [ 86 Right From Monitor] Respiratory 20 Rate Blood Pressure 103/73 [Right Arm] O2 Sat by Pulse 98 Oximetry - Labs 05/15/17 05:57 05/15/17 05:57
--- NOTE | 2017-05-16 16:00 | Discharge Summary ---
Providers - Providers Date of Admission: 05/12/17 15:17 Attending physician: EDEN RAMOS Primary care physician: CONTRACTING EXECUTIVE Hospitalization Condition: Good Disposition: DC-01 TO HOME OR SELFCARE Core Measure Documentation - Palliative Care Palliative Care/ Comfort Measures: Not Applicable - Core Measures Any of the following diagnoses?: none Exam - Constitutional Vitals: Temp Pulse Resp BP Pulse Ox 98.3 F 86 20 103/73 98 05/16/17 07:40 05/16/17 07:40 05/16/17 07:40 05/16/17 07:40 05/16/17 07:40 Plan Activity: other (d/c today. no lifting over 5 lbs x 3 wks. keep dressings dry x 48hrs. call if any Nausea or Vomiting. rto this tues) Weight Bearing Status: Partial Weight Bearing Diet: low fat Wound: keep clean and dry Follow up with: EDEN RAMOS MD [Staff Physician] - 05/19/17
[2017-05-16 16:04] VITALS: BP 114/79
--- NOTE | 2017-05-16 22:30 | Discharge Summary ---
DISCHARGE DIAGNOSES: Acute cholecystitis with inflammation. Also, dilated cystic duct and multiple stones within the gallbladder noted. PROCEDURE WHILE IN HOSPITAL: Exploratory laparotomy and cholecystectomy. The patient is a pleasant 31-year-old female who was recently admitted to the hospital with cholecystitis and choledocholithiasis. Choledocholithiasis was confirmed with MRCP. The patient underwent ERCP with stone extraction and recovered well. At this time, the patient was readmitted for her semi-elective cholecystectomy. Her postoperative course has been essentially unremarkable. The patient was kept n.p.o. for the first 48 hours until her bowel function returned. Subsequent to this, she was started on clear liquid diet and has since yesterday been advanced to a solid, low fat diet without incident. Her recent lab work has all also been essentially stable. Her last CBC on 05/15/2017 was normal with a white count of 9.8, H and H 12 and 35. LFTs have all returned to normal including a total bilirubin of 0.4, AST of 16, ALT of 24, alkaline phosphatase of 79. The patient is tolerating her diet without incident. Her abdomen is soft and nontender. Bowel sounds are present. Incision is clean and dry. The patient will thus be discharged at this time with instructions of no heavy lifting or straining and to keep her incision dry for another 48 hours. She has been instructed to call me immediately if she has any evidence of nausea, vomiting, abdominal pain, fever. If not, the patient will be followed up in the office this Thursday for suture removal The patient has also been given Ector 5/325 for pain p.r.n. JOB# [id number] ASHKAN/LORENA
== END 2017-05-16 19:00 | disposition home or self-care (01) | DRG 416 ==
LOC: OR 11:02 → 3A 15:17 → 2B-SURG 18:16
PROVIDERS: ADMIT Surgery; ATTEND Surgery
PROC: 0FT40ZZ Resection of Gallbladder, Open Approach (ICD-10-PCS; principal; 2017-05-12)
PROC: 0FJ44ZZ Inspection of Gallbladder, Percutaneous Endoscopic Approach (ICD-10-PCS; 2017-05-12)
PROC: 3E0234Z Introduction of Serum, Toxoid and Vaccine into Muscle, Percutaneous Approach (ICD-10-PCS; 2017-05-12)
DX: K80.12 Calculus of gallbladder with acute and chronic cholecystitis without obstruction (principal); Z23 Encounter for immunization
CPT/HCPCS: 36415; 80053; 81025; 82150; 85025; 88304; A4217; J0690; J1100; J1170; J1956; J2250; J2270; J2405; J2704; J2710; J3010; J7050; J7120

== ENCOUNTER 2018-07-13 05:48 | Emergency (ER) | payer SELFPAY ==
[2018-07-13] MEDS ORDERED: NACL 0.9% 1000 ML 1,000 ML IV ONE (06:19)
[2018-07-13 06:39] LABS: Basophils % (Auto) 0.2 % (0.0-1.8); Hematocrit 39.7 % (30.3-42.9); Hemoglobin 13.7 gm/dl (10.1-14.3); Lymphocytes % (Auto) 10.7 % (13.4-35.0); Mean Corpuscular HGB Conc 35 % (30-34); Mean Corpuscular Hemoglobin 31 pg (28-32); Mean Corpuscular Volume 91 fl (79-97); Monocytes # (Auto) 0.2 K/mm3 (0.0-0.8); Monocytes % (Auto) 1.6 % (0.0-7.3); Platelet Count 212 K/mm3 (140-440); Red Blood Count 4.38 M/mm3 (3.65-5.03); Red Cell Distribution Width 13.5 % (13.2-15.2)
[2018-07-13 06:55] LABS: Alanine Aminotransferase 10 units/L (7-56); Albumin 4.4 g/dL (3.9-5); BUN/Creatinine Ratio 28; Blood Urea Nitrogen 11 mg/dL (7-17); Hemolysis Index 7; Lipase 30 units/L (13-60)
[2018-07-13 07:39] LABS: Bilirubin,Urine NEG (Negative); Blood,Urine NEG (Negative); Color,Urine Yellow (Yellow); Mucus,Urine FEW /HPF; Protein,Urine <15 mg/dL mg/dL (Negative); Urobilinogen,Urine < 2.0 mg/dL (<2.0)
[2018-07-13] MEDS ORDERED: ZOFRAN ODT ONE (10:13)
[2018-07-13] MEDS ORDERED: PEPCID ONE (10:13)
[2018-07-13] MEDS ORDERED: ZOFRAN ODT PO ONE (10:14)
[2018-07-13] MEDS ORDERED: PEPCID PO ONE (10:14)
--- NOTE | 2018-07-13 10:16 | Emergency Department Report ---
Blank Doc - Documentation Documentation: Patient is a 32-year-old female who is presenting with some epigastric right upper quadrant discomfort. Patient states it is a burning sensation that radiates into the upper chest with some nausea. Patient last meal was a sharp cocktail. Patient does not have a gallbladder, she is status post cholecystectomy. A focused physical exam patient has some mild discomfort in the epigastrium. Patient was given Pepcid and Zofran x-ray of the abdomen will be done laboratory studies to be interpreted. Patient will be reassessed.
--- NOTE | 2018-07-13 11:03 | XRay Report ---
ABDOMINAL SERIES: History: Epigastric pain. Erect chest film shows no acute or significant changes involving the heart or lung sánchez. There is no evidence of free air beneath the diaphragms. The gas pattern within the abdomen is unremarkable. There is no evidence of bowel dilatation, significant air-fluid levels, or masses. Organ shadows are unremarkable. Cholecystectomy changes are identified. A cylindrical density measuring up to 1.8 cm is identified in the right mid abdomen which is of uncertain significance. This may represent an ingested foreign body or something external to the patient. Please correlate with the image and the patient. IMPRESSION: No acute abdominal process identified.
--- NOTE | 2018-07-13 11:25 | Emergency Department Report ---
ED General Adult HPI - General Chief complaint: Abdominal Pain Stated complaint: BACK, CHEST AND ABDOMINAL PAIN Time Seen by Provider: 07/13/18 10:02 Source: patient Mode of arrival: Ambulatory Limitations: No Limitations - History of Present Illness Initial comments: Patient is a 32-year-old female who is presenting with some epigastric right upper quadrant discomfort. Patient states it is a burning sensation that radiates into the upper chest and progress her on her flank to mid back. She said she vomited twice but now only nauseated. Patient last meal was a sharp cocktail. Patient does not have a gallbladder, she is status post cholecystectomy. Pain is 10 /10 and gets some relief with burping ,no exacerbating factors. She also reports that pain goes up into her chest and sometimes she burps and she gets some relief. Has a history of heart disease. Denies any history of acid reflux. Denies any fever or chills. Denies any urinary symptoms. MD Complaint: epigastric pain with nausea and vomiting -: Last night Location: abdomen Radiation: other (chest, right and flank to mid back.) Severity scale (0 -10): 10 Quality: burning Consistency: constant Improves with: other (burping) Worsens with: none Associated Symptoms: chest pain, nausea/vomiting. denies: confusion, cough, diaphoresis, fever/chills, headaches, loss of appetite, malaise, rash, seizure, shortness of breath, syncope, weakness Treatments Prior to Arrival: none - Related Data Home Medications Medication Instructions Recorded Confirmed Last Taken Norgestimate-Ethinyl Estradiol 1 each PO QDAY 05/11/17 05/12/17 05/11/17 [Sprintec 28 Day Tablet] Previous Rx's Medication Instructions Recorded Last Taken Type HYDROcodone/APAP 5-325 [[place] 1 - 2 each PO Q4HR PRN #30 tablet 05/16/17 Unknown Rx 5/325] Dicyclomine [Bentyl] 40 mg PO Q8H 3 Days #9 tablet 07/13/18 Unknown Rx Ondansetron [Zofran Odt] 4 mg PO Q6H PRN #20 tab.rapdis 07/13/18 Unknown Rx Ranitidine HCl [Zantac 150 MG TAB] 150 mg PO Q12H 30 Days #60 tablet 07/13/18 Unknown Rx Allergies Allergy/AdvReac Type Severity Reaction Status Date / Time No Known Allergies Allergy Verified 02/14/16 18:21 ED Review of Systems ROS: Stated complaint: BACK, CHEST AND ABDOMINAL PAIN Other details as noted in HPI Constitutional: denies: chills, fever Eyes: denies: eye pain, eye discharge ENT: denies: ear pain, throat pain, congestion Respiratory: denies: cough, shortness of breath, SOB with exertion, SOB at rest , wheezing Cardiovascular: denies: chest pain, palpitations, edema, syncope Gastrointestinal: denies: abdominal pain, nausea, vomiting, diarrhea, hematochezia Genitourinary: denies: urgency, dysuria, frequency, hematuria, discharge, abnormal menses, dyspareunia Musculoskeletal: denies: back pain, joint swelling, arthralgia Skin: denies: rash, lesions Neurological: denies: headache, weakness ED Past Medical Hx - Past Medical History Previous Medical History?: Yes Hx Hypertension: No Hx Heart Attack/AMI: No Hx Liver Disease: No Hx Renal Disease: No Hx Seizures: No Hx Asthma: No Hx HIV: No - Surgical History Past Surgical History?: Yes Hx Cholecystectomy: Yes Additional Surgical History: Csection - Family History Family history: hypertension - Social History Smoking Status: Never Smoker Substance Use Type: None - Medications Home Medications: Home Medications Medication Instructions Recorded Confirmed Last Taken Type Norgestimate-Ethinyl Estradiol 1 each PO QDAY 05/11/17 05/12/17 05/11/17 History [Sprintec 28 Day Tablet] HYDROcodone/APAP 5-325 [[place] 1 - 2 each PO Q4HR PRN #30 tablet 05/16/17 Unknown Rx 5/325] Dicyclomine [Bentyl] 40 mg PO Q8H 3 Days #9 tablet 07/13/18 Unknown Rx Ondansetron [Zofran Odt] 4 mg PO Q6H PRN #20 tab.rapdis 07/13/18 Unknown Rx Ranitidine HCl [Zantac 150 MG TAB] 150 mg PO Q12H 30 Days #60 tablet 07/13/18 Unknown Rx ED Physical Exam - General Limitations: No Limitations General appearance: alert, in no apparent distress - Head Head exam: Present: atraumatic, normocephalic, normal inspection - Eye Eye exam: Present: normal appearance, PERRL, EOMI Pupils: Present: normal accommodation - ENT ENT exam: Present: normal exam, normal orophraynx, mucous membranes moist, TM's normal bilaterally, normal external ear exam - Neck Neck exam: Present: normal inspection, full ROM. Absent: tenderness, lymphadenopathy - Respiratory Respiratory exam: Present: normal lung sounds bilaterally. Absent: respiratory distress, chest wall tenderness - Cardiovascular Cardiovascular Exam: Present: regular rate, normal rhythm, normal heart sounds. Absent: systolic murmur, diastolic murmur - GI/Abdominal GI/Abdominal exam: Present: soft, tenderness (epigastric), normal bowel sounds. Absent: distended, guarding, rebound, rigid, organomegaly, mass, bruit, pulsatile mass, hernia - Extremities Exam Extremities exam: Present: normal inspection, full ROM, normal capillary refill , other (No cce. + 2 pulses in all extremities, no neurovascular compromise). Absent: tenderness, pedal edema, joint swelling, calf tenderness - Back Exam Back exam: Present: normal inspection, full ROM, other (amylase along the difficulties while). Absent: tenderness, CVA tenderness (R), CVA tenderness (L) , muscle spasm, paraspinal tenderness, vertebral tenderness, rash noted - Neurological Exam Neurological exam: Present: alert, oriented X3, normal gait, reflexes normal. Absent: motor sensory deficit - Psychiatric Psychiatric exam: Present: normal affect, normal mood - Skin Skin exam: Present: warm, dry, intact, normal color. Absent: rash ED Course Vital Signs 07/13/18 07/13/18 05:46 06:13 Temperature 98.2 F 98.2 F Pulse Rate 88 87 Respiratory 18 18 Rate Blood Pressure 147/92 147/92 O2 Sat by Pulse 100 100 Oximetry - Reevaluation(s) Reevaluation #1: 07/13/18 11:48 Patient received Pepcid 40 mg IV, normal saline 1 L NS and Zofran 4 mg IV and she reports relief of pain and says she feels a lot better. No further nausea or vomiting. ED Medical Decision Making - Lab Data Result diagrams: 07/13/18 06:29 07/13/18 06:29 Lab Results 07/13/18 07/13/18 07/13/18 Range/Units 06:29 06:29 06:29 WBC 9.5 (4.5-11.0) K/mm3 RBC 4.38 (3.65-5.03) M/mm3 Hgb 13.7 (10.1-14.3) gm/dl Hct 39.7 (30.3-42.9) % MCV 91 (79-97) fl MCH 31 (28-32) pg MCHC 35 H (30-34) % RDW 13.5 (13.2-15.2) % Plt Count 212 (140-440) K/mm3 Lymph % (Auto) 10.7 L (13.4-35.0) % [place] % (Auto) 1.6 (0.0-7.3) % Eos % (Auto) 0.0 (0.0-4.3) % Baso % (Auto) 0.2 (0.0-1.8) % Lymph # 1.0 L (1.2-5.4) K/mm3 [place] # 0.2 (0.0-0.8) K/mm3 Eos # 0.0 (0.0-0.4) K/mm3 Baso # 0.0 (0.0-0.1) K/mm3 Seg Neutrophils % 87.5 H (40.0-70.0) % Seg Neutrophils # 8.3 H (1.8-7.7) K/mm3 Sodium 133 L (137-145) mmol/L Potassium 4.4 (3.6-5.0) mmol/L Chloride 95.5 L (98-107) mmol/L Carbon Dioxide 20 L (22-30) mmol/L Anion Gap 22 mmol/L BUN 11 (7-17) mg/dL Creatinine 0.4 L (0.7-1.2) mg/dL Estimated GFR > 60 ml/min BUN/Creatinine Ratio 28 % Glucose 120 H (65-100) mg/dL Calcium 9.0 (8.4-10.2) mg/dL Total Bilirubin 0.20 (0.1-1.2) mg/dL AST 16 (5-40) units/L ALT 10 (7-56) units/L Alkaline Phosphatase 87 (35-129) units/L Troponin T (0.00-0.029) ng/mL Total Protein 7.4 (6.3-8.2) g/dL Albumin 4.4 (3.9-5) g/dL Albumin/Globulin Ratio 1.5 % Lipase 30 (13-60) units/L HCG, Qual Negative (Negative) Urine Color (Yellow) Urine Turbidity (Clear) Urine pH (5.0-7.0) Ur Specific [place] (1.003-1.030) Urine Protein (Negative) mg/dL Urine Glucose (UA) (Negative) mg/dL Urine Ketones (Negative) mg/dL Urine Blood (Negative) Urine Nitrite (Negative) Urine Bilirubin (Negative) Urine Urobilinogen (<2.0) mg/dL Ur Leukocyte Esterase (Negative) Urine WBC (Auto) (0.0-6.0) /HPF Urine RBC (Auto) (0.0-6.0) /HPF U Epithel Cells (Auto) (0-13.0) /HPF Urine Mucus /HPF 07/13/18 07/13/18 07/13/18 Range/Units 06:29 07:13 09:54 WBC (4.5-11.0) K/mm3 RBC (3.65-5.03) M/mm3 Hgb (10.1-14.3) gm/dl Hct (30.3-42.9) % MCV (79-97) fl MCH (28-32) pg MCHC (30-34) % RDW (13.2-15.2) % Plt Count (140-440) K/mm3 Lymph % (Auto) (13.4-35.0) % [place] % (Auto) (0.0-7.3) % Eos % (Auto) (0.0-4.3) % Baso % (Auto) (0.0-1.8) % Lymph # (1.2-5.4) K/mm3 [place] # (0.0-0.8) K/mm3 Eos # (0.0-0.4) K/mm3 Baso # (0.0-0.1) K/mm3 Seg Neutrophils % (40.0-70.0) % Seg Neutrophils # (1.8-7.7) K/mm3 Sodium (137-145) mmol/L Potassium (3.6-5.0) mmol/L Chloride (98-107) mmol/L Carbon Dioxide (22-30) mmol/L Anion Gap mmol/L BUN (7-17) mg/dL Creatinine (0.7-1.2) mg/dL Estimated GFR ml/min BUN/Creatinine Ratio % Glucose (65-100) mg/dL Calcium (8.4-10.2) mg/dL Total Bilirubin (0.1-1.2) mg/dL AST (5-40) units/L ALT (7-56) units/L Alkaline Phosphatase (35-129) units/L Troponin T < 0.010 < 0.010 (0.00-0.029) ng/mL Total Protein (6.3-8.2) g/dL Albumin (3.9-5) g/dL Albumin/Globulin Ratio % Lipase (13-60) units/L HCG, Qual (Negative) Urine Color Yellow (Yellow) Urine Turbidity Clear (Clear) Urine pH 6.0 (5.0-7.0) Ur Specific [place] 1.020 (1.003-1.030) Urine Protein <15 mg/dl (Negative) mg/dL Urine Glucose (UA) Neg (Negative) mg/dL Urine Ketones 20 (Negative) mg/dL Urine Blood Neg (Negative) Urine Nitrite Neg (Negative) Urine Bilirubin Neg (Negative) Urine Urobilinogen < 2.0 (<2.0) mg/dL Ur Leukocyte Esterase Neg (Negative) Urine WBC (Auto) 1.0 (0.0-6.0) /HPF Urine RBC (Auto) 6.0 (0.0-6.0) /HPF U Epithel Cells (Auto) 1.0 (0-13.0) /HPF Urine Mucus Few /HPF - EKG Data -: EKG Interpreted by Me (attending physician) EKG shows normal: sinus rhythm Rate: normal (87 bpm) - EKG Data Interpretation: no acute changes, normal EKG (pancreatitis, liver disease, ACS, pyelonephritis, UTI, acid reflux) - Radiology Data Radiology results: report reviewed Patient had abdominal series with 1 view chest x-ray dictated by radiologist report reviewed by myself. Please see report below for details. Patient: TONI WAGONER MR#: [id number] : 1985 Acct:[id number] Age/Sex: 32 / F ADM Date: 07/13/18 Loc: ED Attending Dr: Ordering Physician: REED HERRON MD Date of Service: 07/13/18 Procedure(s): XR abd series w cxr 1V Accession Number(s): [id number] cc: REED HERRON MD Fluoro Time In Minutes: ABDOMINAL SERIES: History: Epigastric pain. Erect chest film shows no acute or significant changes involving the heart or lung sánchez. There is no evidence of free air beneath the diaphragms. The gas pattern within the abdomen is unremarkable. There is no evidence of bowel dilatation, significant air-fluid levels, or masses. Organ shadows are unremarkable. Cholecystectomy changes are identified. A cylindrical density measuring up to 1.8 cm is identified in the right mid abdomen which is of uncertain significance. This may represent an ingested foreign body or something external to the patient. Please correlate with the image and the patient. IMPRESSION: No acute abdominal process identified. Transcribed By: TTR Dictated By: CJ CARVAJAL JR, MD Electronically Authenticated By: CJ CARVAJAL JR, MD Signed Date/Time: 07/13/181056 DD/ 55 TD/TT: 07/13/181056 - Medical Decision Making This is a 32-year-old female here reports that she has epigastric pain that has been very anterior right chest around her flank and back that started last night. Pain is burning. She reports vomited with some nausea. Denies any diarrhea. Patient is here to be evaluated. She was screened by Dr. Herron and examined. Physical exam normal limits if she is midepigastric tenderness. Patient had abdominal x-ray with PA chest shows dictated per radiologist's per myself and showed no acute findings. EKG normal sinus rhythm without any acute findings, troponins are negative, CBC stable with some minimal abnormalities, urinalysis stable except she has mild dehydration, test is negative and CMP stable minor maladies. I discussed x-ray results along with labs results the patient and she was understanding. She was given Zofran, Pepcid and 1 L normal saline and she is now without anything nausea and says she feels much better and she is not having any chest pain or abdominal pain. Given the presentation and patient's symptoms suspect acid reflux and appropriate for patient to coke oven patcher and primary care. A/P Epigastric abdominal pain-soft, 40 mg IV and was sent home on antacid, Bentyl Atypical chest pain-resolved Nausea and vomiting-resolved with Zofran 4 mg IV and 1 L normal saline. Patient able to tolerate oral liquids and she says she is feeling a lot better. Dyspepsia-resolved patient will be sent home on Zantac and referred to coke oven patcher and primary care physician. Patient discharged home in stable condition with prescription for Zantac, Bentyl and Zofran and educated on medication, follow-up, diagnosis and laboratory. She was understanding. Given referral to gastroenterology and actually her primary care physician. She is to follow-up and 2 days and/or to return to emergency room if her symptoms worsens. - Differential Diagnosis pancreatitis, enteritis, disease, pyelonephritis, UTI, acid reflux Critical care attestation.: If time is entered above; I have spent that time in minutes in the direct care of this critically ill patient, excluding procedure time. ED Disposition Clinical Impression: Dyspepsia, Epigastric abdominal pain, Atypical chest pain Nausea & vomiting Qualifiers: Vomiting type: unspecified Vomiting Intractability: non-intractable Qualified Code(s): R11.2 - Nausea with vomiting, unspecified Disposition: DC-01 TO HOME OR SELFCARE Is pt being admited?: No Does the pt Need Aspirin: No Condition: Stable Instructions: Chest Pain (ED), Diet for Ulcers and Gastritis (ED), Gastroesophageal Reflux Disease (ED), Abdominal Pain (ED) Additional Instructions: Please see discharge instruction on diet to follow to avoid there of acid reflux Follow-up a coke oven patcher as recommended. Followup up Primary care physician in 2 days and if he did not have a primary care physician follow-up [facility] If her symptoms worsens, return to emergency room. See discharge instruction endoscopy Prescriptions: Dicyclomine [Bentyl] 40 mg PO Q8H 3 Days #9 tablet Ondansetron [Zofran Odt] 4 mg PO Q6H PRN #20 tab.rapdis PRN Reason: Nausea And Vomiting Ranitidine HCl [Zantac 150 MG TAB] 150 mg PO Q12H 30 Days #60 tablet Referrals: [facility] [Provider Group] - 2-3 Days [facility] [Outside] - 07/15/18 PRIMARY CAREMD [Primary Care Provider] - 07/15/18 Forms: Work/School Release Form(ED)
[2018-07-13 12:20] VITALS: BP 146/90
== END 2018-07-13 12:20 | disposition home or self-care (01) ==
LOC: ED 05:48
DX: R10.13 Epigastric pain (principal); R11.2 Nausea with vomiting, unspecified; R07.89 Other chest pain; Z90.49 Acquired absence of other specified parts of digestive tract
CPT/HCPCS: 36415; 74022; 80053; 81001; 83690; 84484; 84703; 85025; 93005; 93010; Q0162